=== PATIENT | male | born 1965 | race Caucasian/White ===

== ENCOUNTER 2017-04-05 12:24 | Observation (INO) | payer BC, OTHER ==
[2017-04-05] VITALS (11 sets, daily range): BP systolic 122–155; BP diastolic 66–87; PULSE 52–71; RESP 16–20; TEMP 97.5–98.5; O2SAT 92–98
[~2017-04-05 12:24] MED LIST: ALLO100T PO; ASPI-516 CHEW; ATEN50TA PO; ATOR20TA15 PO; CETI10 PO; COLC1TAB15 PO; FAMO40TA PO; FLUT1SPR5 EACH NARE; HEPA1INJ IM; HYDR25TA5 PO; OMEP20TA93 PO; TETA1INJ4 IM; [UNRECOGNIZED DRUG - CODE] IM
[2017-04-05] MEDS ORDERED: IOHEXOL 350 MG/ML 10 ML VIAL (for RAD DIAG) IVCONTRAST ONE (12:25)
[2017-04-05] MEDS ORDERED: SODIUM CHLORIDE 0.9% FLUSH 10 ML FLUSH IVF PRN (12:45)
--- NOTE | 2017-04-05 13:04 | PD ---
HPI Chief Complaint: Cardiac Complaint Time Seen by Provider: 12:41 Travel History International Travel<30 days: No Contact w/Intl Traveler<30days: No Traveled to known affect area: No History of Present Illness HPI Patient is a 51-year-old male presenting to emergency from for evaluation of chest pain. Patient states he woke up with it this morning approximately 7:30. Patient states it radiates across his anterior chest wall to his back across the shoulder blades. Patient also reports that his blood pressure and pulse rate was low this morning when he checked it. Patient states that he checks it on a daily basis, he has a history of hypertension and is currently on atenolol. He reports compliance with his medications. Patient reports feeling clammy with the pain but denies any shortness of breath, dizziness, headache, nausea, radiation to the arm or jaw. Patient reports a family history of abdominal aortic aneurysms in his father and grandfather. Patient does not use tobacco products. Patient states that he has been burping a lot last night and this morning. PFSH Past Medical History Hx Anticoagulant Therapy: Yes (ASA) High Cholesterol: Yes Hypertension: Yes Past Surgical History Cholecystectomy: Yes Family History Narrative Family History MA history of abdominal aortic aneurysms and father and grandfather Social History Alcohol Use: No Tobacco Use: No Substance Use: No Allergies-Medications (Allergen,Severity, Reaction): Coded Allergies: No Known Allergies (Unverified Adverse Reaction, Unknown, 04/05/17) Reported Meds & Prescriptions Reported Meds & Active Scripts Active Atenolol 50 Mg Tab 50 Mg PO DAILY Famotidine 40 Mg Tab 40 Mg PO HS Flonase Nasal [place] (Fluticasone Nasal [place]) 50 Mcg/Act [place] 100 Mcg EACH NARE BID Allopurinol 100 Mg Tab 300 Mg PO DAILY Hydrochlorothiazide 25 Mg Tab 25 Mg PO DAILY Atorvastatin (Atorvastatin Calcium) 20 Mg Tab 20 Mg PO HS Omeprazole 20 Mg Tab 20 Mg PO DAILY Reported Aspirin 81 Mg Chew 81 Mg CHEW DAILY Cetirizine (Cetirizine HCl) 10 Mg Tab 10 Mg PO DAILY Review of Systems Except as stated in HPI: all other systems reviewed are Neg Eyes: No: Blurred Vision HENT: No: Headaches, Lightheadedness Cardiovascular: Positive: Chest Pain or Discomfort, Diaphoresis, No: Palpitations, Tachycardia, Syncope, Edema Respiratory: No: Shortness of Breath Gastrointestinal: No: Nausea, Vomiting, Abdominal Pain Genitourinary: No: Frequency, Dysuria Musculoskeletal: No: Myalgias Neurologic: No: Weakness, Dizziness, Syncope, Focal Abnormalities Physical Exam Narrative GENERAL: Well-developed, well-nourished, alert male. Resting comfortably in no acute distress. SKIN: Warm and dry. HEAD: Atraumatic. Normocephalic. EYES: Pupils equal and round. No scleral icterus. No injection or drainage. ENT: No nasal bleeding or discharge. Mucous membranes pink and moist. NECK: Trachea midline. No JVD. CARDIOVASCULAR: Bradycardic, no murmur noted. RESPIRATORY: No accessory muscle use. Clear to auscultation. Breath sounds equal bilaterally. GASTROINTESTINAL: Abdomen soft, non-tender, nondistended. Hepatic and splenic margins not palpable. No tenderness to palpation on anterior chest wall or across back. MUSCULOSKELETAL: Extremities without clubbing, cyanosis, or edema. No obvious deformities. NEUROLOGICAL: Awake and alert. No obvious cranial nerve deficits. Motor grossly within normal limits. Five out of 5 muscle strength in the arms and legs. Normal speech. PSYCHIATRIC: Appropriate mood and affect; insight and judgment normal. Data Data Last Documented VS Vital Signs Date Time Temp Pulse Resp B/P (MAP) Pulse Ox O2 Delivery O2 Flow Rate FiO2 04/05/17 13:26 52 16 152/73 (99) 97 Room Air 04/05/17 12:26 97.5 Orders Orders Electrocardiogram (04/05/17 12:40) Ckmb (Isoenzyme) Profile (04/05/17 12:40) Complete Blood Count With Diff (04/05/17 12:40) Comprehensive Metabolic Panel (04/05/17 12:40) Magnesium (Mg) (04/05/17 12:40) Prothrombin Time / Inr (Pt) (04/05/17 12:40) Act Partial Throm Time (Ptt) (04/05/17 12:40) Troponin I (04/05/17 12:40) Lipase (04/05/17 12:40) Chest, Single Ap (04/05/17 12:40) Ecg Monitoring (04/05/17 12:40) Bilateral Bp Monitoring (04/05/17 12:40) Iv Access Insert/Monitor (04/05/17 12:40) Oximetry (04/05/17 12:40) Oxygen Administration (04/05/17 12:40) Sodium Chloride 0.9% Flush (Ns Flush) (04/05/17 12:45) Ct Pulmonary Angiogram (04/05/17 ) CKMB (04/05/17 13:00) CKMB% (04/05/17 13:00) Iohexol 350 Inj (Omnipaque 350 Inj) (04/05/17 12:25) Aspirin Chew (Aspirin Chew) (04/05/17 14:15) Admit Order (Ed Use Only) (04/05/17 14:28) Morphine Inj (Morphine Inj) (04/05/17 14:30) Ondansetron Inj (Zofran Inj) (04/05/17 14:30) Labs Laboratory Tests Test 04/05/17 13:00 White Blood Count 11.6 TH/MM3 Red Blood Count 4.96 MIL/MM3 Hemoglobin 15.7 GM/DL Hematocrit 45.5 % Mean Corpuscular Volume 91.7 FL Mean Corpuscular Hemoglobin 31.7 PG Mean Corpuscular Hemoglobin Concent 34.6 % Red Cell Distribution Width 13.1 % Platelet Count 221 TH/MM3 Mean Platelet Volume 8.5 FL Neutrophils (%) (Auto) 82.1 % Lymphocytes (%) (Auto) 14.0 % Monocytes (%) (Auto) 3.4 % Eosinophils (%) (Auto) 0.1 % Basophils (%) (Auto) 0.4 % Neutrophils # (Auto) 9.5 TH/MM3 Lymphocytes # (Auto) 1.6 TH/MM3 Monocytes # (Auto) 0.4 TH/MM3 Eosinophils # (Auto) 0.0 TH/MM3 Basophils # (Auto) 0.0 TH/MM3 CBC Comment DIFF FINAL Differential Comment Prothrombin Time 11.1 SEC Prothromb Time International Ratio 1.1 RATIO Activated Partial Thromboplast Time 26.4 SEC Blood Urea Nitrogen 12 MG/DL Creatinine 1.02 MG/DL Random Glucose 148 MG/DL Total Protein 7.7 GM/DL Albumin 4.0 GM/DL Calcium Level 9.1 MG/DL Magnesium Level 1.8 MG/DL Alkaline Phosphatase 99 U/L Aspartate Amino Transf (AST/SGOT) 68 U/L Alanine Aminotransferase (ALT/SGPT) 72 U/L Total Bilirubin 0.8 MG/DL Sodium Level 136 MEQ/L Potassium Level 4.6 MEQ/L Chloride Level 102 MEQ/L Carbon Dioxide Level 26.1 MEQ/L Anion Gap 8 MEQ/L Estimat Glomerular Filtration Rate 77 ML/MIN Total Creatine Kinase 262 U/L Creatine Kinase MB 2.0 NG/ML Troponin I LESS THAN 0.02 NG/ML Lipase 86 U/L MDM Medical Decision Making Medical Screen Exam Complete: Yes Emergency Medical Condition: Yes Interpretation(s) Laboratory Tests Test 04/05/17 13:00 White Blood Count 11.6 TH/MM3 Red Blood Count 4.96 MIL/MM3 Hemoglobin 15.7 GM/DL Hematocrit 45.5 % Mean Corpuscular Volume 91.7 FL Mean Corpuscular Hemoglobin 31.7 PG Mean Corpuscular Hemoglobin Concent 34.6 % Red Cell Distribution Width 13.1 % Platelet Count 221 TH/MM3 Mean Platelet Volume 8.5 FL Neutrophils (%) (Auto) 82.1 % Lymphocytes (%) (Auto) 14.0 % Monocytes (%) (Auto) 3.4 % Eosinophils (%) (Auto) 0.1 % Basophils (%) (Auto) 0.4 % Neutrophils # (Auto) 9.5 TH/MM3 Lymphocytes # (Auto) 1.6 TH/MM3 Monocytes # (Auto) 0.4 TH/MM3 Eosinophils # (Auto) 0.0 TH/MM3 Basophils # (Auto) 0.0 TH/MM3 CBC Comment DIFF FINAL Differential Comment Prothrombin Time 11.1 SEC Prothromb Time International Ratio 1.1 RATIO Activated Partial Thromboplast Time 26.4 SEC Blood Urea Nitrogen 12 MG/DL Creatinine 1.02 MG/DL Random Glucose 148 MG/DL Total Protein 7.7 GM/DL Albumin 4.0 GM/DL Calcium Level 9.1 MG/DL Magnesium Level 1.8 MG/DL Alkaline Phosphatase 99 U/L Aspartate Amino Transf (AST/SGOT) 68 U/L Alanine Aminotransferase (ALT/SGPT) 72 U/L Total Bilirubin 0.8 MG/DL Sodium Level 136 MEQ/L Potassium Level 4.6 MEQ/L Chloride Level 102 MEQ/L Carbon Dioxide Level 26.1 MEQ/L Anion Gap 8 MEQ/L Estimat Glomerular Filtration Rate 77 ML/MIN Total Creatine Kinase 262 U/L Creatine Kinase MB 2.0 NG/ML Troponin I LESS THAN 0.02 NG/ML Lipase 86 U/L Last Impressions Chest X-Ray 04/05/17 1240 Signed Impressions: Service Date/Time: Wednesday, April 05, 2017 13:02 - CONCLUSION: Normal examination. Luis F Sim MD CT Angiography 04/05/17 0000 Signed Impressions: Service Date/Time: Wednesday, April 05, 2017 13:46 - CONCLUSION: 1. No pulmonary emboli. 2. Prior granulomatous disease. Zain Lynn Jr., MD Vital Signs Date Time Temp Pulse Resp B/P (MAP) Pulse Ox O2 Delivery O2 Flow Rate FiO2 04/05/17 12:26 97.5 54 16 155/87 (109) 97 Room Air Differential Diagnosis ACS versus NSTEMI versus AAA versus GERD versus other Narrative Course Patient is a 51-year-old male that presented to emergency department evaluation of chest pain. Patient is mildly bradycardic on arrival, his vital signs are otherwise stable and he is asymptomatic. IV access established, patient placed on lunchroom monitor and continuous pulse oximetry. Initial EKG shows sinus bradycardia, this was reviewed by my attending physician. CBC with no acute findings Chemistry no acute findings, cardiac enzymes are negative 1 set, lipase is 86 Chest x-ray shows no acute disease CT pulmonary angiogram was ordered due to patient's family history of aortic aneurysm. CT is negative for acute abnormality. At this time patient will be admitted to the chest pain center for further trending of his enzymes and for possible stress test. This was discussed with patient and , he is agreeable. He also asked for pain medicine at this time which she initially declined when he arrived. Morphine and Zofran ordered for pain. Chest pain admission order placed. Diagnosis Primary Impression: Chest pain Qualified Codes: R07.9 - Chest pain, unspecified Admitting Information Admitting Physician Requests: Observation Condition: Stable Ana Laura Gerardi Ann [employer] Apr 05, 2017 13:04
--- NOTE | 2017-04-05 13:14 | RADRPT ---
EXAM DATE/TIME: 04/05/2017 13:02 [facility] COMPARISON: No previous studies available for comparison. INDICATIONS : Chest pain started today. MEDICAL HISTORY : None. SURGICAL HISTORY : Cholecystectomy. ENCOUNTER: Initial ACUITY: 1 day PAIN SCORE: 6/10 LOCATION: Bilateral chest FINDINGS: A single view of the chest demonstrates the lungs to be symmetrically aerated without evidence of mas s, infiltrate or effusion. The cardiomediastinal contours are unremarkable. Osseous structures are intact. CONCLUSION: Normal examination. Luis F Sim MD on April 05, 2017 at 13:12 Board Certified Radiologist. This report was verified electronically.
[2017-04-05 13:18] LABS: AUTOMATED NEUTROPHIL # 9.5 TH/MM3 (1.8-7.7); BASOPHIL % 0.4 % (0.0-2.0); EOSINOPHIL % 0.1 % (0.0-4.0); HEMATOCRIT 45.5 % (39.0-51.0); HEMO FLAGS DIFF FINAL; LYMPHOCYTE # 1.6 TH/MM3 (1.0-4.8); MEAN CELL VOLUME 91.7 FL (80.0-100.0); MEAN CORPUSCULAR HEMOGLOBIN 31.7 PG (27.0-34.0); MEAN CORPUSCULAR HGB CONC 34.6 % (32.0-36.0); MONO % 3.4 % (0.0-8.0); NEUT % 82.1 % (16.0-70.0); PLATELET COUNT 221 TH/MM3 (150-450); RED BLOOD COUNT 4.96 MIL/MM3 (4.50-5.90); RED CELL DISTRIBUTION WIDTH 13.1 % (11.6-17.2); WHITE BLOOD COUNT 11.6 TH/MM3 (4.0-11.0)
[2017-04-05 13:32] LABS: ALT (GPT) 72 U/L (12-78); ANION GAP 8 MEQ/L (5-15); APTT (PATIENT) 26.4 SEC (24.3-30.1); AST (GOT) 68 U/L (15-37); BICARBONATE 26.1 MEQ/L (21.0-32.0); CHLORIDE 102 MEQ/L (98-107); GLOMERULAR FILTRATION RATE 77 ML/MIN (>89); INTERNATIONAL NORMALIZED RATIO 1.1 RATIO; MAGNESIUM 1.8 MG/DL (1.5-2.5); POTASSIUM 4.6 MEQ/L (3.5-5.1); PROTHROMBIN TIME - PATIENT 11.1 SEC (9.8-11.6); SODIUM (NA) 136 MEQ/L (136-145)
[2017-04-05 13:33] LABS: BLOOD UREA NITROGEN 12 MG/DL (7-18)
[2017-04-05 13:37] LABS: ALKALINE PHOSPHATASE 99 U/L (45-117); CREATINE KINASE 262 U/L (39-308); TOTAL BILIRUBIN ADULT 0.8 MG/DL (0.2-1.0)
[2017-04-05] MEDS ORDERED: ASPIRIN 81 MG CHEW TAB CHEW ONE (14:15)
--- NOTE | 2017-04-05 14:16 | RADRPT ---
EXAM DATE/TIME: 04/05/2017 13:46 This report includes an Addendum and supersedes previous reports for this exam. [facility] COMPARISON: No previous studies available for comparison. INDICATIONS : Short of breath with chest pains for one day. IV CONTRAST: 49 cc Omnipaque 350 (iohexol) IV RADIATION DOSE: 20.64 CTDIvol (mGy) MEDICAL HISTORY : Hypertension. SURGICAL HISTORY : Cholecystectomy. ENCOUNTER: Initial ACUITY: 1 day PAIN SCALE: 5/10 LOCATION: Bilateral chest TECHNIQUE: Volumetric scanning of the chest was performed using a pulmonary embolism protocol MIP images were re constructed. Using automated exposure control and adjustment of the mA and/or kV according to patien t size, radiation dose was kept as low as reasonably achievable to obtain optimal diagnostic quality images. DICOM format image data is available electronically for review and comparison. Follow-up recommendations for detected pulmonary nodules are based at a minimum on nodule size and pa tient risk factors according to Fleischner Society Guidelines. FINDINGS: PULMONARY ARTERIES: No filling defects are seen in the pulmonary arteries through the segmental level. LUNGS: There is no consolidation or pneumothorax . No concerning pulmonary nodule is visualized. The calcif ied granulomas noted bilaterally. PLEURAE: There is no pleural thickening or pleural effusion. MEDIASTINUM: There is good visualization of the great vessels of the middle mediastinum. No evidence of mediastin al or hilar adenopathy/mass. MUSCULOSKELETAL: Within normal limits for patient age. MISCELLANEOUS: The visualized upper abdominal organs demonstrate no acute abnormality. CONCLUSION: 1. No pulmonary emboli. 2. Prior granulomatous disease. Zain Lynn Jr., MD on April 05, 2017 at 14:12 Board Certified Radiologist. This report was verified electronically. ADDENDUM: The thoracic aorta is unremarkable. Luis F Sim MD on April 05, 2017 at 15:18 Board Certified Radiologist. This report was verified electronically.
[2017-04-05] MEDS ORDERED: MORPHINE SULFATE 2 MG/ML INJ IV PUSH ONE (14:30)
[2017-04-05] MEDS ORDERED: ONDANSETRON HCL 4 MG/2 ML VIAL IV PUSH ONE (14:30)
--- NOTE | 2017-04-05 15:06 | EKG ---
Date Performed: 04/05/2017 Time Performed: 12:52:19 PTAGE: 51 years EKG: SINUS BRADYCARDIA BORDERLINE ECG NO PREVIOUS TRACING DOCTOR: Juan Brown Interpretating Date/Time 04/05/2017 15:05:22
[2017-04-05] MEDS ORDERED: ACETAMINOPHEN 500 MG CPLT PO PRN (15:15)
[2017-04-05] MEDS ORDERED: ONDANSETRON HCL 4 MG/2 ML VIAL IV PUSH PRN (15:15)
[2017-04-05] MEDS ORDERED: ACETAMINOPHEN/HYDROcodone 325 MG/7.5 MG TAB PO PRN (15:15)
[2017-04-05] MEDS ORDERED: RESP: ALBUTEROL 2.5 MG/IPRATROPIUM 0.5 MG NEB (PRN) INH (15:30)
[2017-04-05] MEDS ORDERED: cloNIDine HCL 0.1 MG TAB PO PRN (15:30)
--- NOTE | 2017-04-05 15:34 | HHI.HP ---
[facility] Primary Care Physician MIRNA Watts Chief Complaint Abdominal and back pain History of Present Illness This is a 51-year-old male with history of hypertension and hyperlipidemia that presents to ED with a complaint of upper abdominal pain and upper back pain between his shoulder blades. States that this discomfort began this morning while he was home sitting on his couch. This concerned him. He checked his vital signs and found that his heart rate was at 37, states his heart rate issues the in the 50s in the morning. He takes atenolol for hypertension. He states had upper abdominal and back pain and my father of an abdominal aneurysm. Denies chest discomfort. The discomfort has been there ever since which is currently about 5 hours. The discomfort has lightened quite a bit. Denies shortness of breath and nausea. He was little diaphoretic. He also felt lightheaded. Cannot recall prior cardiac workup. Patient also has history of GERD. States he's never had an endoscopy. Review of Systems General: Patient denies fevers, chills recent, and recent travel HEENT: Patient denies headache, sore throat, difficulty swallowing. Cardiovascular: Denies chest discomfort as mentioned above. Denies sensation of heart beating rapidly or irregularly. No syncope. Respiratory: Denies shortness of breath or inspirational chest discomfort. Denies coughing wheezing or hemoptysis. GI: Complains of upper abdominal pain. Complains of upper back pain. Patient denies nausea, vomiting, diarrhea, and bloody stools. Musculoskeletal: Patient denies joint pain or edema. Denies calf pain or edema. Neurovascular: Patient denies numbness, tingling, weakness in extremities. Denies headache. Endocrine: Denies polyuria and polydipsia. Hematologic: Denies easy bruising. Skin: Denies rash or itching. Past Family Social History Allergies: Coded Allergies: No Known Allergies (Unverified Adverse Reaction, Unknown, 04/05/17) Past Medical History Hypertension, hyperlipidemia, GERD, seasonal allergies, and gout. Denies diabetes and known CAD. Past Surgical History Cholecystectomy. Reported Medications Reported Meds & Active Scripts Active Atenolol 50 Mg Tab 50 Mg PO DAILY Famotidine 40 Mg Tab 40 Mg PO HS Flonase Nasal [place] (Fluticasone Nasal [place]) 50 Mcg/Act [place] 100 Mcg EACH NARE BID Allopurinol 100 Mg Tab 300 Mg PO DAILY Hydrochlorothiazide 25 Mg Tab 25 Mg PO DAILY Atorvastatin (Atorvastatin Calcium) 20 Mg Tab 20 Mg PO HS Omeprazole 20 Mg Tab 20 Mg PO DAILY Reported Aspirin 81 Mg Chew 81 Mg CHEW DAILY Cetirizine (Cetirizine HCl) 10 Mg Tab 10 Mg PO DAILY Active Ordered Medications Current Medications Medications (Trade) Dose Ordered Sig/Stacey Route Start Time Stop Time Status Last Admin (NS Flush) 2 ml UNSCH PRN IVF 04/05/17 12:45 (Tylenol) 500 mg Q4H PRN PO 04/05/17 15:15 ([place] 7.5-325 Mg) 1 tab Q4H PRN PO 04/05/17 15:15 (Zofran Inj) 4 mg Q6H PRN IV PUSH 04/05/17 15:15 (Tenormin) 50 mg DAILY PO 04/06/17 09:00 UNV (Lipitor) 20 mg HS PO 04/05/17 21:00 UNV (ZyrTEC) 10 mg DAILY PO 04/06/17 09:00 UNV (Hydrodiuril) 25 mg DAILY PO 04/06/17 09:00 UNV Non-Formulary Medication 100 mcg BID EACH NARE 04/05/17 21:00 UNV (Duoneb Neb) 1 ampule Q4HR NEB PRN INH 04/05/17 15:30 UNV (Catapres) 0.1 mg Q4H PRN PO 04/05/17 15:30 UNV Family History States he was adopted but knows that his father in his 80s of an abdominal aortic aneurysm. Social History Lifetime nonsmoker. Denies illicit drugs. Has occasional alcohol. Physical Exam Vital Signs Vital Signs Date Time Temp Pulse Resp B/P (MAP) Pulse Ox O2 Delivery O2 Flow Rate FiO2 04/05/17 14:45 56 16 122/66 (84) 96 Room Air 04/05/17 13:26 52 16 152/73 (99) 97 Room Air 04/05/17 13:05 20 94 Room Air 04/05/17 13:03 134/82 (99) 152/73 (99) 04/05/17 12:26 97.5 54 16 155/87 (109) 97 Room Air Physical Exam GENERAL: This is a well-nourished, well-developed patient, in no apparent distress. Patient speaks in clear complete sentences. Patient is pleasant. HEENT: Head is atraumatic and normocephalic. Neck is supple without lymphadenopathy and trachea is midline. No JVD or carotid bruits. CARDIOVASCULAR: Regular rate and rhythm without murmurs, gallops, or rubs. RESPIRATORY: Clear to auscultation. Breath sounds equal bilaterally. No wheezes , rales, or rhonchi. Chest wall is nontender. No use of accessory muscles. GASTROINTESTINAL: There is a little bit of epigastric tenderness. Abdomen is nondistended. Abdomen is soft. No obvious pulsatile mass or bruit. No CVA tenderness. Strong femoral pulses bilaterally. Normal bowel sounds in all quadrants. MUSCULOSKELETAL: Patient is moving upper and lower extremities freely. No calf tenderness or edema, no Homans sign. Strong pulses in upper and lower extremities. NEUROLOGICAL: Patient is alert and oriented. Cranial nerves 2-12 are grossly intact. No focal deficits and speech is clear. SKIN: No rash and turgor is normal. Laboratory Laboratory Tests Test 04/05/17 13:00 White Blood Count 11.6 Red Blood Count 4.96 Hemoglobin 15.7 Hematocrit 45.5 Mean Corpuscular Volume 91.7 Mean Corpuscular Hemoglobin 31.7 Mean Corpuscular Hemoglobin Concent 34.6 Red Cell Distribution Width 13.1 Platelet Count 221 Mean Platelet Volume 8.5 Neutrophils (%) (Auto) 82.1 Lymphocytes (%) (Auto) 14.0 Monocytes (%) (Auto) 3.4 Eosinophils (%) (Auto) 0.1 Basophils (%) (Auto) 0.4 Neutrophils # (Auto) 9.5 Lymphocytes # (Auto) 1.6 Monocytes # (Auto) 0.4 Eosinophils # (Auto) 0.0 Basophils # (Auto) 0.0 CBC Comment DIFF FINAL Differential Comment Prothrombin Time 11.1 Prothromb Time International Ratio 1.1 Activated Partial Thromboplast Time 26.4 Blood Urea Nitrogen 12 Creatinine 1.02 Random Glucose 148 Total Protein 7.7 Albumin 4.0 Calcium Level 9.1 Magnesium Level 1.8 Alkaline Phosphatase 99 Aspartate Amino Transf (AST/SGOT) 68 Alanine Aminotransferase (ALT/SGPT) 72 Total Bilirubin 0.8 Sodium Level 136 Potassium Level 4.6 Chloride Level 102 Carbon Dioxide Level 26.1 Anion Gap 8 Estimat Glomerular Filtration Rate 77 Total Creatine Kinase 262 Creatine Kinase MB 2.0 Troponin I LESS THAN 0.02 Lipase 86 Result Diagram: 04/05/17 1300 04/05/17 1300 Imaging Last 48 hours Impressions Chest X-Ray 04/05/17 1240 Signed Impressions: Service Date/Time: Wednesday, April 05, 2017 13:02 - CONCLUSION: Normal examination. Luis F Sim MD CT Angiography 04/05/17 0000 Signed Impressions: Service Date/Time: Wednesday, April 05, 2017 13:46 - CONCLUSION: 1. No pulmonary emboli. 2. Prior granulomatous disease. Zain Lynn Jr., MD ADDENDUM: The thoracic aorta is unremarkable. Luis F Sim MD Course Initial EKG is sinus bradycardia with a rate of 54. No significant ST segment depressions or elevations. Caprini VTE Risk Assessment Caprini VTE Risk Assessment: No/Low Risk (score <= 1) Caprini Risk Assessment Model Point Value = 1 Point Value = 2 Point Value = 3 Point Value = 5 Age 41-60 Minor surgery BMI > 25 kg/m2 Swollen legs Varicose veins or History of unexplained or recurrent spontaneous Oral contraceptives or hormone replacement Sepsis (< 1 month) Serious lung disease, including pneumonia (< 1 month) Abnormal pulmonary function Acute myocardial infarction Congestive heart failure (< 1 month) History of inflammatory bowel disease Medical patient at bed rest Age 61-74 Arthroscopic surgery Major open surgery (> 45 min) Laparoscopic surgery (> 45 min) Malignancy Confined to bed (> 72 hours) Immobilizing plaster cast Central venous access Age >= 75 History of VTE Family history of VTE Factor V Leiden Prothrombin [id number] Lupus anticoagulant Anticardiolipin antibodies Elevated serum homocysteine Heparin-induced thrombocytopenia Other congenital or acquired thrombophilia Stroke (< 1 month) Elective arthroplasty Hip, pelvis, or leg fracture Acute spinal cord injury (< 1 month) Prophylaxis Regimen Total Risk Factor Score Risk Level Prophylaxis Regimen 0-1 Low Early ambulation 2 Moderate Order ONE of the following: *Sequential Compression Device (SCD) *Heparin 5000 units SQ BID 3-4 Higher Order ONE of the following medications: *Heparin 5000 units SQ TID *Enoxaparin/Lovenox 40 mg SQ daily (WT < 150 kg, CrCl > 30 mL/min) *Enoxaparin/Lovenox 30 mg SQ daily (WT < 150 kg, CrCl > 10-29 mL/min) *Enoxaparin/Lovenox 30 mg SQ BID (WT < 150 kg, CrCl > 30 mL/min) AND/OR *Sequential Compression Device (SCD) 5 or more Highest Order ONE of the following medications: *Heparin 5000 units SQ TID (Preferred with Epidurals) *Enoxaparin/Lovenox 40 mg SQ daily (WT < 150 kg, CrCl > 30 mL/min) *Enoxaparin/Lovenox 30 mg SQ daily (WT < 150 kg, CrCl > 10-29 mL/min) *Enoxaparin/Lovenox 30 mg SQ BID (WT < 150 kg, CrCl > 30 mL/min) AND *Sequential Compression Device (SCD) Assessment and Plan Assessment and Plan * Abdominal pain: Patient denies having chest discomfort. Complained of upper abdominal pain in upper back pain. Patient was admitted to the chest pain center and will be evaluated by Dr. Barnes cardiology in the chest pain center. Patient had a CTA to rule out pulmonary embolus which was able to rule out pulmonary embolism. I spoke with the radiologist and he is going to read the films and make an addendum discussing thoracic aorta. Recommended ultrasound of the abdominal aorta to look for aneurysm. This has been ordered. If aneurysm was ruled out, patient with then proceed with stress testing in the morning if he rules out with cardiac enzymes. States he could walk on the treadmill. Subsequently if his CT and abdominal aorta are negative for aneurysm he will proceed with a Carroll protocol ETT and be discharged if that is nonischemic. He has history of GERD. States he's never had endoscopy. He has been advised to follow-up with roller cleaner for endoscopy. He should follow-up with PCP and return to ED for interval issues. * Hypertension: Continue current medication. * Hyperlipidemia: Continue current medication. * GERD: Patient will be on Protonix while in the chest pain center. He can resume his medication discharge. Patient is stable at this time. He is agreeable to this plan. Kg Arias Apr 05, 2017 15:34
--- NOTE | 2017-04-05 16:25 | RADRPT ---
EXAM DATE/TIME: 04/05/2017 15:42 [facility] COMPARISON: No previous studies available for comparison. INDICATIONS : Aortic aneurysm. MEDICAL HISTORY : Hypertension. Gastroesophageal reflux disease. Hypertension. SURGICAL HISTORY : Cholecystectomy. ENCOUNTER: Initial ACUITY: 1 day PAIN SCORE: 6/10 LOCATION: Abdomen. MEASUREMENTS: (AP x TRANSVERSE) PROXIMAL: 2.1 x 2.5 cm MID: 2.0 x 2.2 cm DISTAL: 1.9 x 2.2 cm RIGHT ILIAC: 1.2 x 1.6 cm LEFT ILIAC: 1.0 x 1.5 cm FINDINGS: AORTA: No significant atherosclerotic disease. Doppler evaluation within normal limits. IVC: Within normal limits. CONCLUSION: 1. Abdominal aorta is normal in caliber without evidence for aneurysm. Anthony Marie MD on April 05, 2017 at 16:22 Board Certified Radiologist. This report was verified electronically.
[2017-04-05 16:31] LABS: CREATINE KINASE 157 U/L (39-308)
[2017-04-05 16:43] LABS: CKMB 1.7 NG/ML (0.5-3.6)
[2017-04-05 19:26] LABS: CREATINE KINASE 139 U/L (39-308)
[2017-04-05 19:38] LABS: CKMB 1.7 NG/ML (0.5-3.6)
--- NOTE | 2017-04-05 20:52 | EKG ---
Date Performed: 04/05/2017 Time Performed: 16:13:17 PTAGE: 51 years EKG: SINUS BRADYCARDIA WITH SINUS ARRHYTHMIA BORDERLINE ECG No significant change from prior johny ctrocardiogram. PREVIOUS TRACING : 04/05/2017 12.52 DOCTOR: Juan Brown Interpretating Date/Time 04/05/2017 20:51:10
[2017-04-05] MEDS ORDERED: FLUTICASONE PROPIONATE 50 MCG/ACT 16 GM NASAL SPRAY EACH NARE SCH (21:00)
[2017-04-05] MEDS ORDERED: ATORVASTATIN 20 MG TAB PO SCH (21:00)
--- NOTE | 2017-04-05 21:36 | EKG ---
Date Performed: 04/05/2017 Time Performed: 19:08:13 PTAGE: 51 years EKG: Sinus rhythm WITH SINUS ARRHYTHMIA NORMAL ECG No significant change from prior electrocardiogram. PREVIOUS TRACING : 04/05/2017 16.13 DOCTOR: Juan Brown Interpretating Date/Time 04/05/2017 21:34:55
[2017-04-06 00:13] VITALS: PULSE 75
[2017-04-06 04:08] VITALS: BP 142/81; PULSE 65; RESP 17; TEMP 98.7; O2SAT 98
[2017-04-06 04:12] VITALS: PULSE 65
[2017-04-06 07:28] VITALS: BP 145/87; PULSE 60; RESP 18; TEMP 98.1; O2SAT 96
[2017-04-06] MEDS: ATENOLOL 50 MG TAB PO SCH ×2 (08:55→16:17)
[2017-04-06] MEDS ORDERED: HYDROCHLOROTHIAZIDE 25 MG TAB PO SCH (09:00)
[2017-04-06] MEDS ORDERED: ASPIRIN 325 MG TAB PO SCH (09:00)
[2017-04-06] MEDS ORDERED: CETIRIZINE HCL 10 MG TAB PO SCH (09:00)
[2017-04-06 11:26] VITALS: BP 125/74; PULSE 91; RESP 18; TEMP 97.5; O2SAT 93
[2017-04-06] MEDS ORDERED: REGADENOSON INJ 0.4 MG/5 ML SYR ONE (14:02)
--- NOTE | 2017-04-06 16:00 | RADRPT ---
EXAM DATE/TIME: 04/06/2017 13:40 [facility] COMPARISON: No previous studies available for comparison. INDICATIONS : Chest pain. Angina. DOSE: 35.0 mCi Tc99m Myoview at stress. 11.0 mCi Tc99m Myoview at rest. 0.4 mg Lexiscan STRESS SYMPTOMS: Dyspnea. EJECTION FRACTION: 52% MEDICAL HISTORY : Hypertension. Hypercholesterolemia. SURGICAL HISTORY : Cholecystectomy. ENCOUNTER: Initial ACUITY: 1 day PAIN SCALE: 3/10 LOCATION: Bilateral chest TECHNIQUE: The patient underwent pharmacologic stress with infusion of prescribed dose. Continuous ECG tracing was monitored during stress. Gated SPECT imaging was performed after stress and conventional SPECT i maging was performed at rest. The examination was performed on a SPECT/CT scanner, both attenuation and non-corrected datasets were reviewed. FINDINGS: DISTRIBUTION: The maximum perfused segment at stress is in the inferior/inferolateral wall. PERFUSION STUDY: The pattern of perfusion at stress shows fixed diminished perfusion to the mid and low anteroseptal w all extending into the apex. GATED STUDY: Hypokinesis of the septal wall. Wall motion is otherwise intact. CONCLUSION: 1. There is diminished perfusion to the mid and lower anteroseptal edwards extending into the apex poss ibly representing an old area of infarction. 2. No reversibility to suggest ischemia. 3. Septal hypokinesis with preserved ejection fraction of 52%. RISK CATEGORY: Low (<1% Annual Mortality Rate) Sonny Garza MD on April 06, 2017 at 15:43 Board Certified Radiologist. This report was verified electronically.
[2017-04-06 16:15] VITALS: BP 130/79; PULSE 100; RESP 14; O2SAT 96
--- NOTE | 2017-04-06 16:20 | HHI.DCPOC ---
Discharge Care Plan Diagnosis: (1) Atypical chest pain (2) Family history of abdominal aortic aneurysm (AAA) Goals to Promote Your Health * To prevent worsening of your condition and complications * To maintain your health at the optimal level Directions to Meet Your Goals Take your medications as prescribed Follow your dietary instruction Follow activity as directed Keep your appointments as scheduled Take your immunizations and boosters as scheduled If your symptoms worsen call your PCP, if no PCP go to Urgent Care Center or Emergency Room Smoking is Dangerous to Your Health. Avoid second hand smoke Call the 24-hour hour crisis hotline for domestic abuse at Rita Moore Apr 06, 2017 16:20
--- NOTE | 2017-04-07 12:59 | TR ---
Date Performed: 04/06/2017 Time Performed: 14:05:47 DOCTOR: Sunil Gonzalez DRUG LIST: CLINICAL HISTORY: CHEST PAIN REASON FOR TEST: CHEST PAIN REASON FOR ENDING: OBSERVATION: CONCLUSION: Lexiscan stress test was performed under standard four minute protocol. Radionuclid e was injected one minute prior to ending the test. No electrocardiographic abormalities were present to suggest ischemia. Nuclear imaging and interpretation are pending. COMMENTS:
--- NOTE | 2017-04-07 13:12 | TR ---
Date Performed: 04/06/2017 Time Performed: 10:40:41 DOCTOR: Sunil Gonzalez DRUG LIST: CLINICAL HISTORY: REASON FOR TEST: REASON FOR ENDING: OBSERVATION: CONCLUSION: Carroll protocol attempted. Stopped sec to leg fatigue. Maximum WB=391 % Target HR Ach ieved=77.0 Maximum KG=215/68 Total Exercise Time=9:35. No repord chest discomfort. No ectopy. Normal bp response. Great exercise tolerance. Recovery quick and unremarkable. Suboptimal target heart rate. COMMENTS: Conclusion: Normal treadmill exercise. No evidence of ischemia. test is submaximal.
== END 2017-04-06 18:03 | disposition home or self-care (01) ==
LOC: NEPE 12:24 → NEDH 14:30 → NEPFCDU 16:51
PROVIDERS: ADMIT Internal Medicine Interventional Cardiology; ATTEND Internal Medicine Interventional Cardiology
DX: R10.10 Upper abdominal pain, unspecified (principal); R07.89 Other chest pain; R06.02 Shortness of breath; R42 Dizziness and giddiness; R61 Generalized hyperhidrosis; M54.9 Dorsalgia, unspecified; R00.1 Bradycardia, unspecified; I49.9 Cardiac arrhythmia, unspecified; I20.9 Angina pectoris, unspecified; I10 Essential (primary) hypertension; E78.00 Pure hypercholesterolemia, unspecified; K21.9 Gastro-esophageal reflux disease without esophagitis; J30.2 Other seasonal allergic rhinitis; Z79.899 Other long term (current) drug therapy; Z79.82 Long term (current) use of aspirin
CPT/HCPCS: 71010; 71275; 76775; 78452; 80053; 82550; 82552; 83690; 83735; 84484; 85025; 85610; 85730; 93005; 93017; 96374; 96375; 99285; A9502; G0378; J2270; J2405; J2785; Q9967

== ENCOUNTER 2017-04-24 23:33 | Inpatient (IN) | payer BC ==
[~2017-04-24] VITALS: Ht 172.7 cm; Wt 75.0 kg
[~2017-04-24 23:33] MED LIST changes: -COLC1TAB15 PO
[2017-04-24 23:34] VITALS: BP 165/93; PULSE 53; RESP 16; TEMP 97.8; O2SAT 97
[2017-04-25] VITALS (8 sets, daily range): BP systolic 107–167; BP diastolic 62–92; PULSE 49–83; RESP 16–20; TEMP 97.9–99.8; O2SAT 94–99
[2017-04-25] MEDS ORDERED: SODIUM CHLOR 0.9% 1000 ML INJ 1,000 ML IV SCH (00:23)
--- NOTE | 2017-04-25 00:29 | PD ---
HPI Chief Complaint: Abdominal Pain Time Seen by Provider: 00:23 Travel History International Travel<30 days: No Contact w/Intl Traveler<30days: No Traveled to known affect area: No History of Present Illness HPI Patient states pain radiates into his back. Patient denies chest pain. Patient was recently hospitalized approximate 2 weeks ago for complaint of chest pain with slow heart rate at which time he had a nuclear stress test that was identified for low probability for cardiac risk times one year CT bony angiogram was negative for PE and thoracic aorta was identified to be normal caliber an ultrasound of the abdominal aorta was found also to be consistent was normal caliber no acute process. Patient has done well since hospitalization and returns now because of epigastric pain. Patient states pain does radiate into his back. Patient states pain was 9 and half over 10 is currently 8/10 intensity. Patient has had nausea and vomiting times one without hematemesis coffee-ground emesis or bilious emesis. Patient is status post cholecystectomy. Patient does have history of dyslipidemia and hypertension. Patient denies history of diabetes or tobaccoism. Patient has family history of aortic disease that he is otherwise unaware family history as he is adopted. Patient has had no fever or chills. Patient is unable to identify exacerbating or alleviating factors. PFSH Past Medical History Narrative Medical Hypertension dyslipidemia cholecystectomy no tobacco use nursing notes reviewed Hx Anticoagulant Therapy: Yes (ASA) Cardiovascular Problems: Yes (HTN) High Cholesterol: Yes Diminished Hearing: No Gout: Yes Hypertension: Yes Immunizations Current: Yes Tetanus Vaccination: Unknown Influenza Vaccination: No Past Surgical History Cholecystectomy: Yes Social History Alcohol Use: No Tobacco Use: No Substance Use: No Allergies-Medications (Allergen,Severity, Reaction): Coded Allergies: No Known Allergies (Unverified Adverse Reaction, Unknown, 04/24/17) Reported Meds & Prescriptions Reported Meds & Active Scripts Active Atenolol 50 Mg Tab 50 Mg PO DAILY Famotidine 40 Mg Tab 40 Mg PO HS Flonase Nasal Alpha (Fluticasone Nasal Alpha) 50 Mcg/Act Alpha 100 Mcg EACH NARE BID Allopurinol 100 Mg Tab 300 Mg PO DAILY Hydrochlorothiazide 25 Mg Tab 25 Mg PO DAILY Atorvastatin (Atorvastatin Calcium) 20 Mg Tab 20 Mg PO HS Omeprazole 20 Mg Tab 20 Mg PO DAILY Reported Aspirin 81 Mg Chew 81 Mg CHEW DAILY Cetirizine (Cetirizine HCl) 10 Mg Tab 10 Mg PO DAILY Review of Systems Except as stated in HPI: all other systems reviewed are Neg Physical Exam Narrative GENERAL: Well-developed well-nourished female in acute distress no respiratory distress SKIN: Warm and dry. HEAD: Normocephalic. EYES: No scleral icterus. No injection or drainage. NECK: Supple, trachea midline. No JVD or lymphadenopathy. CARDIOVASCULAR: Regular rate and rhythm without murmurs, gallops, or rubs. RESPIRATORY: Breath sounds equal bilaterally. No accessory muscle use. GASTROINTESTINAL: Abdomen soft, epigastric and umbilical tenderness to palpation without guarding or rebound, nondistended. MUSCULOSKELETAL: No cyanosis, or edema. BACK: Nontender without obvious deformity. No CVA tenderness. Data Data Last Documented VS Vital Signs Date Time Temp Pulse Resp B/P (MAP) Pulse Ox O2 Delivery O2 Flow Rate FiO2 04/25/17 02:25 72 18 136/89 (105) Room Air 04/25/17 00:46 99 04/24/17 23:34 97.8 Orders Orders Complete Blood Count With Diff (04/25/17:23) Comprehensive Metabolic Panel (04/25/17 00:23) Lipase (04/25/17:23) Lactic Acid (04/25/17:23) Prothrombin Time / Inr (Pt) (04/25/17:23) Act Partial Throm Time (Ptt) (04/25/17:23) Urinalysis - C+S If Indicated (04/25/17:23) Ct Abd/Pel W Iv Contrast(Rout) (04/25/17:23) Iv Access Insert/Monitor (04/25/17:23) Ecg Monitoring (04/25/17:23) Oximetry (04/25/17:23) Ondansetron Inj (Zofran Inj) (04/25/17 00:30) Sodium Chlor 0.9% 1000 Ml Inj (Ns 1000 M (04/25/17:23) Sodium Chloride 0.9% Flush (Ns Flush) (04/25/17 00:30) Electrocardiogram (04/25/17 00:23) Chest, Single Ap (04/25/17 00:23) Morphine Inj (Morphine Inj) (04/25/17 00:30) Iohexol 350 Inj (Omnipaque 350 Inj) (04/25/17 02:03) Admit Order (Ed Use Only) (04/25/17 ) Vital Signs (Adult) Q4H (04/25/17 02:56) Diet Npo (04/25/17 Breakfast) Activity Oob With Assistance (04/25/17 02:56) Notify Dr: Other (04/25/17 02:56) Labs Laboratory Tests Test 04/25/17 00:30 White Blood Count 9.4 TH/MM3 Red Blood Count 5.52 MIL/MM3 Hemoglobin 17.9 GM/DL Hematocrit 50.9 % Mean Corpuscular Volume 92.3 FL Mean Corpuscular Hemoglobin 32.4 PG Mean Corpuscular Hemoglobin Concent 35.1 % Red Cell Distribution Width 13.5 % Platelet Count 275 TH/MM3 Mean Platelet Volume 8.5 FL Neutrophils (%) (Auto) 66.3 % Lymphocytes (%) (Auto) 24.5 % Monocytes (%) (Auto) 7.9 % Eosinophils (%) (Auto) 0.7 % Basophils (%) (Auto) 0.6 % Neutrophils # (Auto) 6.2 TH/MM3 Lymphocytes # (Auto) 2.3 TH/MM3 Monocytes # (Auto) 0.7 TH/MM3 Eosinophils # (Auto) 0.1 TH/MM3 Basophils # (Auto) 0.1 TH/MM3 CBC Comment DIFF FINAL Differential Comment Prothrombin Time 10.5 SEC Prothromb Time International Ratio 1.0 RATIO Activated Partial Thromboplast Time 24.8 SEC Urine Color BROWN Urine Turbidity CLEAR Urine pH 7.0 Urine Specific [place] 1.036 Urine Protein 30 mg/dL Urine Glucose (UA) NEG mg/dL Urine Ketones TRACE mg/dL Urine Occult Blood TRACE Urine Nitrite NEG Urine Bilirubin MOD Urine Urobilinogen 4.0 MG/DL Urine Leukocyte Esterase NEG Urine RBC 8 /hpf Urine WBC 3 /hpf Urine Squamous Epithelial Cells <1 /hpf Urine Mucus FEW /lpf Microscopic Urinalysis Comment CULT NOT INDICATED Blood Urea Nitrogen 13 MG/DL Creatinine 1.22 MG/DL Random Glucose 151 MG/DL Total Protein 8.6 GM/DL Albumin 4.4 GM/DL Calcium Level 9.3 MG/DL Alkaline Phosphatase 199 U/L Aspartate Amino Transf (AST/SGOT) 337 U/L Alanine Aminotransferase (ALT/SGPT) 581 U/L Total Bilirubin 4.8 MG/DL Sodium Level 138 MEQ/L Potassium Level 3.4 MEQ/L Chloride Level 100 MEQ/L Carbon Dioxide Level 29.3 MEQ/L Anion Gap 9 MEQ/L Estimat Glomerular Filtration Rate 63 ML/MIN Lactic Acid Level 2.1 mmol/L Lipase 134 U/L MDM Medical Decision Making Medical Screen Exam Complete: Yes Emergency Medical Condition: Yes Medical Record Reviewed: Yes Interpretation(s) EKG: Sinus bradycardia rate [address] elevation injury pattern or ectopy noted Vital Signs Date Time Temp Pulse Resp B/P (MAP) Pulse Ox O2 Delivery O2 Flow Rate FiO2 04/25/17 02:25 72 18 136/89 (105) Room Air 04/25/17 00:46 99 Room Air 04/25/17 00:09 49 16 167/79 (108) 97 Room Air 04/24/17 23:34 97.8 53 16 165/93 (117) 97 Room Air Last Impressions Chest X-Ray 04/25/1722 Signed Impressions: Service Date/Time: Tuesday, April 25, 2017 00:30 - CONCLUSION: Cardiomegaly. No acute cardiopulmonary disease. Joaquin Giron MD Abdomen/Pelvis CT 04/25/1722 Signed Impressions: Service Date/Time: Tuesday, April 25, 2017 01:57 - CONCLUSION: 1. No evidence of acute abdominal or pelvic process. No masses are identified. 2. Hypodense liver compatible with fatty infiltration or hepatocellular disease. Joaquin Giron MD CBC & BMP Diagram 04/25/17 00:30 Total Protein 8.6 H, Albumin 4.4, Calcium Level 9.3, Alkaline Phosphatase 199 H , Aspartate Amino Transf (AST/SGOT) 337 H, Alanine Aminotransferase (ALT/SGPT) 581 H, Total Bilirubin 4.8 H Differential Diagnosis Abdominal pain, pancreatitis, choledocholithiasis, gastritis, peptic ulcer disease, atypical diverticulitis, ACS, MA, aortic dissection Narrative Course Patient placed on nurse licensed practical with continuous pulse oximetry; IV access obtained specimens collected and sent for resulting EKG performed which shows a sinus bradycardia otherwise without acute abnormality; maintenance IV fluids administered along with morphine sulfate 4 mg IV and Zofran [address] abdomen and pelvis ordered CT abdomen and pelvis reveals fatty liver changes otherwise no acute process; patient identified to have elevation of LFTs with transaminitis and hyperbilirubinemia normal lipase Patient's pain is improved 6/10 in intensity after morphine IV decreased from 10 over 10 in intensity Patient is aware of imaging results and lab values with plan for observation admission Patient's case discussed with [facility] MD Dr Agarwal Physician Communication Physician Communication discussed with [facility] Diagnosis Primary Impression: Intractable abdominal pain Additional Impression: Hepatitis Admitting Information Admitting Physician Requests: Observation Michell Thomas MD Apr 25, 2017 00:29
[2017-04-25] MEDS ORDERED: ONDANSETRON HCL 4 MG/2 ML VIAL IVP ONE (00:30)
[2017-04-25] MEDS ORDERED: SODIUM CHLORIDE 0.9% FLUSH 10 ML FLUSH IV FLUSH PRN ×2 (00:30→03:00)
[2017-04-25] MEDS ORDERED: MORPHINE SULFATE 2 MG/ML INJ IV PUSH ONE (00:30)
--- NOTE | 2017-04-25 00:50 | RADRPT ---
EXAM DATE/TIME: 04/25/2017 00:30 [facility] COMPARISON: CHEST SINGLE AP, April 05, 2017, 13:02. INDICATIONS : Upper abdominal pain with vomiting. MEDICAL HISTORY : Hypercholesterolemia. Hypertension SURGICAL HISTORY : Cholecystectomy. ENCOUNTER: Initial ACUITY: 2 days PAIN SCORE: 8/10 LOCATION: Bilateral chest FINDINGS: The cardiac silhouette is enlarged in transverse diameter. The lungs are free of acute parenchymal op acity. No effusions are identified. Osseous structures are intact. CONCLUSION: Cardiomegaly. No acute cardiopulmonary disease. Joaquin Giron MD on April 25, 2017 at 0:48 Board Certified Radiologist. This report was verified electronically.
[2017-04-25 00:53] LABS: AUTOMATED NEUTROPHIL # 6.2 TH/MM3 (1.8-7.7); BASOPHIL # 0.1 TH/MM3 (0-0.2); BASOPHIL % 0.6 % (0.0-2.0); EOSINOPHIL # 0.1 TH/MM3 (0-0.4); EOSINOPHIL % 0.7 % (0.0-4.0); HEMATOCRIT 50.9 % (39.0-51.0); HEMOGLOBIN 17.9 GM/DL (13.0-17.0); LYMPH % 24.5 % (9.0-44.0); LYMPHOCYTE # 2.3 TH/MM3 (1.0-4.8); MEAN CELL VOLUME 92.3 FL (80.0-100.0); MEAN CORPUSCULAR HEMOGLOBIN 32.4 PG (27.0-34.0); MEAN CORPUSCULAR HGB CONC 35.1 % (32.0-36.0); MEAN PLATELET VOLUME 8.5 FL (7.0-11.0); MONO % 7.9 % (0.0-8.0); MONOCYTE # 0.7 TH/MM3 (0-0.9); NEUT % 66.3 % (16.0-70.0); PLATELET COUNT 275 TH/MM3 (150-450); RED BLOOD COUNT 5.52 MIL/MM3 (4.50-5.90); RED CELL DISTRIBUTION WIDTH 13.5 % (11.6-17.2); WHITE BLOOD COUNT 9.4 TH/MM3 (4.0-11.0)
[2017-04-25 00:57] LABS: BILIRUBIN, URINE MOD (NEG); BLOOD, URINE TRACE (NEG); GLUCOSE,URINE NEG (NEG); KETONE, URINE TRACE mg/dL (NEG); MUCUS URINE FEW /lpf (OCC); NITRITE,URINE NEG (NEG); SQUAMOUS EPITHELIAL CELL URINE <1 /hpf (0-5); URINE LEUKOCYTE ESTERASE NEG (NEG)
[2017-04-25 00:58] LABS: URINE COLOR BROWN (YELLW/STRAW)
[2017-04-25 01:03] LABS: PROTHROMBIN TIME - PATIENT 10.5 SEC (9.8-11.6)
[2017-04-25 01:17] LABS: ALKALINE PHOSPHATASE 199 U/L (45-117); ALT (GPT) 581 U/L (12-78); TOTAL BILIRUBIN ADULT 4.8 MG/DL (0.2-1.0); TOTAL PROTEIN 8.6 GM/DL (6.4-8.2)
[2017-04-25 01:40] LABS: ALBUMIN 4.4 GM/DL (3.4-5.0); AST (GOT) 337 U/L (15-37); BICARBONATE 29.3 MEQ/L (21.0-32.0); BLOOD UREA NITROGEN 13 MG/DL (7-18); CALCIUM 9.3 MG/DL (8.5-10.1); CHLORIDE 100 MEQ/L (98-107); CREATININE 1.22 MG/DL (0.60-1.30); GLOMERULAR FILTRATION RATE 63 ML/MIN (>89); GLUCOSE,RANDOM 151 MG/DL (74-106); LIPASE 134 U/L (73-393); SODIUM (NA) 138 MEQ/L (136-145)
[2017-04-25] MEDS ORDERED: IOHEXOL 350 MG/ML 10 ML VIAL (for RAD DIAG) IVCONTRAST ONE (02:03)
--- NOTE | 2017-04-25 02:17 | RADRPT ---
EXAM DATE/TIME: 04/25/2017 01:57 [facility] COMPARISON: No previous studies available for comparison. INDICATIONS : Epigastric pain. IV CONTRAST: 95 cc Omnipaque 350 (iohexol) IV ORAL CONTRAST: No oral contrast ingested. RADIATION DOSE: 16.00 CTDIvol (mGy) MEDICAL HISTORY : Hypertension. Cardiovascular disease Gastroesophageal reflux disease. SURGICAL HISTORY : Cholecystectomy. ENCOUNTER: Initial ACUITY: 1 day PAIN SCALE: 10/10 LOCATION: Abdomen TECHNIQUE: Volumetric scanning of the abdomen and pelvis was performed. Using automated exposure control and ad justment of the mA and/or kV according to patient size, radiation dose was kept as low as reasonably achievable to obtain optimal diagnostic quality images. DICOM format image data is available electro nically for review and comparison. FINDINGS: There is subsegmental atelectasis in the both bases. Calcified granuloma is present in the left lung . There is decreased density of the liver with respect to the spleen compatible with fatty infiltrati on. The spleen is unremarkable. The gallbladder is absent. The pancreas demonstrates normal contour w ithout evidence of mass or ductal dilatation. The adrenal glands and kidneys appear normal bilaterall y. No hydronephrosis or mass lesions are identified. Examination of the right lower quadrant demonstr ates no abnormality. The appendix is identified and appears normal. Examination of the pelvis demonstrates no evidence of free fluid or pelvic mass. No abnormally enlarg ed inguinal or retroperitoneal lymph nodes are present. The bladder is unremarkable. CONCLUSION: 1. No evidence of acute abdominal or pelvic process. No masses are identified. 2. Hypodense liver compatible with fatty infiltration or hepatocellular disease. Joaquin Giron MD on April 25, 2017 at 2:14 Board Certified Radiologist. This report was verified electronically.
[2017-04-25] MEDS ORDERED: LACTULOSE SYRUP 20 GM/30 ML CUP PO PRN (03:00)
[2017-04-25] MEDS ORDERED: ONDANSETRON HCL 4 MG/2 ML VIAL IVP PRN (03:00)
[2017-04-25] MEDS ORDERED: BISACODYL 10 MG SUPP RECTAL PRN (03:00)
[2017-04-25] MEDS ORDERED: ACETAMINOPHEN 325 MG TAB PO PRN (03:00)
[2017-04-25] MEDS ORDERED: SENNOSIDES 8.6 MG TAB PO PRN (03:00)
[2017-04-25] MEDS ORDERED: FAMOTIDINE 20 MG/2 ML VIAL IV PUSH ONE (03:00)
[2017-04-25] MEDS ORDERED: MORPHINE SULFATE 2 MG/ML INJ IV PUSH PRN (03:00)
[2017-04-25] MEDS ORDERED: MAGNESIUM HYDROXIDE SUSP 30 ML CUP PO PRN (03:00)
[2017-04-25] MEDS: SODIUM CHLOR 0.9% 1000 ML INJ 1,000 ML IV SCH ×3 (03:25→23:38)
--- NOTE | 2017-04-25 03:37 | HHI.HP ---
[facility] Watts Admission Diagnosis intractable pain; hepatitis Diagnoses: (1) Intractable abdominal pain Diagnosis: Principal (2) Elevated LFTs Diagnosis: Principal (3) Lactic acidosis Diagnosis: Principal (4) Hypokalemia Diagnosis: Principal Travel History International Travel<30 Days: No Contact w/Intl Traveler <30 Da: No Traveled to Known Affected Are: No History of Present Illness This is a 51-year-old male with PMH of HTN, Hyperlipidemia and Gout who presented to the ER w/ complaints of epigastric pain. States the pain started last night. Pain is severe, constant, 9/10 and radiates to back. Associated w / nausea/vomiting. No fever, chills or diarrhea. Denies alleviating or exacerbating factors. No h/o similar symptoms. On arrival, BP 165/93, HR 53, O2 sat 97% on RA, Afebrile. CBC essentially unremarkable. K+ 3.4. GFR 63. Lactic Acid 2.1. Total Bili 4.8. LFTs elevated in comparison to previous labs from 04/05/17. AST 337, ALT 581, ALP 199, previously normal. INR 1.0. UA negative for UTI. CT Abd/Pelvis w/ no evidence of acute abdominal or pelvic process, hypodense liver w/ fatty infiltration. CXR w/ no acute findings. S/p multiple doses of Morphine in ER w/ some improvement. Review of Systems Except as stated in HPI: all other systems reviewed are Neg ROS: 14 point review of systems otherwise negative. Past Family Social History Past Medical History PMH: HTN, Hyperlipidemia and Gout Past Surgical History PAST SURGICAL HISTORY: Cholecystectomy Allergies: Coded Allergies: No Known Allergies (Unverified Adverse Reaction, Unknown, 04/24/17) Family History PAST FAMILY HISTORY: Reviewed. No h/o DM or CAD Social History PAST SOCIAL HISTORY: Negative for alcohol, tobacco or drugs. Physical Exam Vital Signs Vital Signs Date Time Temp Pulse Resp B/P (MAP) Pulse Ox O2 Delivery O2 Flow Rate FiO2 04/25/17 02:25 72 18 136/89 (105) Room Air 04/25/17 00:46 99 Room Air 04/25/17 00:09 49 16 167/79 (108) 97 Room Air 04/24/17 23:34 97.8 53 16 165/93 (117) 97 Room Air Physical Exam PE: GENERAL: Pleasant middle-aged male in no acute distress. HEENT: PERRLA, EOMI. No scleral icterus or conjunctival pallor. No lid lag or facial droop. CARDIOVASCULAR: Regular rate and rhythm. No obvious murmurs to auscultation. No chest tenderness to palpation. RESPIRATORY: No obvious rhonchi or wheezing. Clear to auscultation. Breath sounds equal bilaterally. GASTROINTESTINAL: Abdomen soft, epigastric/RUQ tenderness to palpation, nondistended. BS normal. MUSCULOSKELETAL: Extremities without clubbing, cyanosis, or edema. No obvious deformities. NEUROLOGICAL: Awake, alert and oriented x4. No focal neurologic deficits. Moving both upper and lower extremities spontaneously. Laboratory Laboratory Tests Test 04/25/17 00:30 White Blood Count 9.4 Red Blood Count 5.52 Hemoglobin 17.9 Hematocrit 50.9 Mean Corpuscular Volume 92.3 Mean Corpuscular Hemoglobin 32.4 Mean Corpuscular Hemoglobin Concent 35.1 Red Cell Distribution Width 13.5 Platelet Count 275 Mean Platelet Volume 8.5 Neutrophils (%) (Auto) 66.3 Lymphocytes (%) (Auto) 24.5 Monocytes (%) (Auto) 7.9 Eosinophils (%) (Auto) 0.7 Basophils (%) (Auto) 0.6 Neutrophils # (Auto) 6.2 Lymphocytes # (Auto) 2.3 Monocytes # (Auto) 0.7 Eosinophils # (Auto) 0.1 Basophils # (Auto) 0.1 CBC Comment DIFF FINAL Differential Comment Prothrombin Time 10.5 Prothromb Time International Ratio 1.0 Activated Partial Thromboplast Time 24.8 Urine Color BROWN Urine Turbidity CLEAR Urine pH 7.0 Urine Specific [place] 1.036 Urine Protein 30 Urine Glucose (UA) NEG Urine Ketones TRACE Urine Occult Blood TRACE Urine Nitrite NEG Urine Bilirubin MOD Urine Urobilinogen 4.0 Urine Leukocyte Esterase NEG Urine RBC 8 Urine WBC 3 Urine Squamous Epithelial Cells <1 Urine Mucus FEW Microscopic Urinalysis Comment CULT NOT INDICATED Blood Urea Nitrogen 13 Creatinine 1.22 Random Glucose 151 Total Protein 8.6 Albumin 4.4 Calcium Level 9.3 Alkaline Phosphatase 199 Aspartate Amino Transf (AST/SGOT) 337 Alanine Aminotransferase (ALT/SGPT) 581 Total Bilirubin 4.8 Sodium Level 138 Potassium Level 3.4 Chloride Level 100 Carbon Dioxide Level 29.3 Anion Gap 9 Estimat Glomerular Filtration Rate 63 Lactic Acid Level 2.1 Lipase 134 Result Diagram: 04/25/172904/25/1729 Caprini VTE Risk Assessment Caprini VTE Risk Assessment: No/Low Risk (score <= 1) Caprini Risk Assessment Model Point Value = 1 Point Value = 2 Point Value = 3 Point Value = 5 Age 41-60 Minor surgery BMI > 25 kg/m2 Swollen legs Varicose veins or History of unexplained or recurrent spontaneous Oral contraceptives or hormone replacement Sepsis (< 1 month) Serious lung disease, including pneumonia (< 1 month) Abnormal pulmonary function Acute myocardial infarction Congestive heart failure (< 1 month) History of inflammatory bowel disease Medical patient at bed rest Age 61-74 Arthroscopic surgery Major open surgery (> 45 min) Laparoscopic surgery (> 45 min) Malignancy Confined to bed (> 72 hours) Immobilizing plaster cast Central venous access Age >= 75 History of VTE Family history of VTE Factor V Leiden Prothrombin [id number] Lupus anticoagulant Anticardiolipin antibodies Elevated serum homocysteine Heparin-induced thrombocytopenia Other congenital or acquired thrombophilia Stroke (< 1 month) Elective arthroplasty Hip, pelvis, or leg fracture Acute spinal cord injury (< 1 month) Prophylaxis Regimen Total Risk Factor Score Risk Level Prophylaxis Regimen 0-1 Low Early ambulation 2 Moderate Order ONE of the following: *Sequential Compression Device (SCD) *Heparin 5000 units SQ BID 3-4 Higher Order ONE of the following medications: *Heparin 5000 units SQ TID *Enoxaparin/Lovenox 40 mg SQ daily (WT < 150 kg, CrCl > 30 mL/min) *Enoxaparin/Lovenox 30 mg SQ daily (WT < 150 kg, CrCl > 10-29 mL/min) *Enoxaparin/Lovenox 30 mg SQ BID (WT < 150 kg, CrCl > 30 mL/min) AND/OR *Sequential Compression Device (SCD) 5 or more Highest Order ONE of the following medications: *Heparin 5000 units SQ TID (Preferred with Epidurals) *Enoxaparin/Lovenox 40 mg SQ daily (WT < 150 kg, CrCl > 30 mL/min) *Enoxaparin/Lovenox 30 mg SQ daily (WT < 150 kg, CrCl > 10-29 mL/min) *Enoxaparin/Lovenox 30 mg SQ BID (WT < 150 kg, CrCl > 30 mL/min) AND *Sequential Compression Device (SCD) Assessment and Plan Problem List: (1) Intractable abdominal pain ICD Code: R10.9 - Unspecified abdominal pain (2) Elevated LFTs ICD Code: R79.89 - Other specified abnormal findings of blood chemistry (3) Lactic acidosis ICD Code: E87.2 - Acidosis (4) Hypokalemia ICD Code: E87.6 - Hypokalemia Assessment and Plan A/P: 1. Intractable Abd Pain: reports acute onset of epigastric/RUQ pain, s/p Morphine in ER w/ some improvement, however persistent pain complaints. Continue w/ analgesics/antiemetics as needed. Diet as tolerated. 2. Elevated LFTs: Acute. Labs previously normal on 04/05/17, now Total Bili 4.8, AST 337, ALT 581, ALP 199. Unclear etiology. Lipase normal. CT Abd/ Pelvis w/ no acute findings, images reviewed by me. Hepatitis secondary to medications? Will hold Allopurinol. Check Hepatitis Panel, check Tylenol level , Check Lipid Profile, TSH. Consult GI for further evaluation, possible intervention. 3. Lactic Acidosis: Lactate 2.1, likely secondary to dehydration rather than Sepsis. Afebrile, no leukocytosis. IVF for hydration, repeat Lactic Acid. 4. Hypokalemia: K+ 3.4, will recheck and replace as needed. 5. DVT Prophylaxis: SCD/Teds 6. Social work for dc planning as needed. 7. Case discussed at length w/ ER physician, records/labs/imaging reviewed by me. Physician Certification 2 Midnight Certification Type: Admission for Inpatient Services Order for Inpatient Services The services are ordered in accordance with Medicare regulations or non- Medicare payer requirements, as applicable. In the case of services not specified as inpatient-only, they are appropriately provided as inpatient services in accordance with the 2-midnight benchmark. Estimated LOS (days): 2 days is the estimated time the patient will need to remain in the hospital, assuming treatment plan goals are met and no additional complications. Post-Hospital Plan: Not yet determined Jillian Agarwal MD Apr 25, 2017 03:37
[2017-04-25] MEDS ORDERED: HYDROmorphone HCL PF 2 MG/ML VIAL IV PUSH PRN ×2 (03:45→09:00)
[2017-04-25 07:38] LABS: CHOLESTEROL 107 MG/DL (120-200); TRIGLYCERIDES 211 MG/DL (42-150)
[2017-04-25 07:47] LABS: HDL CHOLESTEROL 31.4 MG/DL (40.0-60.0); LDL CHOLESTEROL 33 MG/DL (0-99)
[2017-04-25 07:58] LABS: ACETAMINOPHEN LESS THAN 2.0 MCG/ML (10.0-30.0)
[2017-04-25] MEDS ORDERED: OMEP20TA93 PO (09:11)
[2017-04-25] MEDS: DOCUSATE SODIUM 50 MG/SENNA 8.6 MG TAB PO SCH ×2 (09:24→21:00)
[2017-04-25] MEDS: SODIUM CHLORIDE 0.9% FLUSH 10 ML FLUSH IV FLUSH SCH ×2 (09:24→21:00)
--- NOTE | 2017-04-25 09:41 | RADRPT ---
EXAM DATE/TIME: 04/25/2017 07:51 [facility] COMPARISON: CT ABDOMEN & PELVIS W CONTRAST, April 25, 2017, 1:57. INDICATIONS : Right upper quadrant pain. MEDICAL HISTORY : Hypercholesterolemia. Hypertension. Gastroesophageal reflux disease. Gout. Anticoagulant therapy, Asp irin. SURGICAL HISTORY : Cholecystectomy. ENCOUNTER: Initial ACUITY: 3 days PAIN SCORE: 10/10 LOCATION: Right upper quadrant MEASUREMENTS: LIVER: 16.9 cm length COMMON DUCT: Non-visualized RIGHT KIDNEY: 11.5 x 5.5 x 6.6 cm FINDINGS: LIVER: Markedly echogenic without duct dilatation COMMON DUCT: Poorly visualized GALLBLADDER: Surgically absent PANCREAS: Are visualized RIGHT KIDNEY: No evidence of hydronephrosis, stone, or mass. CONCLUSION: Very limited exam. Gallbladder surgically absent. Johny Serra MD FACR on April 25, 2017 at 9:37 Board Certified Radiologist. This report was verified electronically.
[2017-04-25] MEDS ORDERED: amLODIPine BESYLATE 5 MG TAB PO ONE (10:30)
--- NOTE | 2017-04-25 10:38 | HHI.PR ---
Subjective Remarks Follow up on patient with epigastric pain radiating to back. Patient seen and examined. Patient lying in bed moaning. 10/10 pain. Diaphoretic. Patient denies hx of liver problems. Reports N/V yesterday, no blood in vomitus. Denies any diarrhea or constipation. Denies any black/tarry/bloody stools. Does endorse hematuria without dysuria yesterday. Hx of previous cholecystectomy. Denies EtOH use. Objective Vitals Vital Signs Date Time Temp Pulse Resp B/P (MAP) Pulse Ox O2 Delivery O2 Flow Rate FiO2 04/25/17 05:49 97.9 61 20 139/80 (99) 94 04/25/17 04:02 04/25/17 02:25 72 18 136/89 (105) Room Air 04/25/17 00:46 99 Room Air 04/25/17 00:09 49 16 167/79 (108) 97 Room Air 04/24/17 23:34 97.8 53 16 165/93 (117) 97 Room Air Result Diagram: 04/25/170 04/25/1729 Imaging Last Impressions Chest X-Ray 04/25/1722 Signed Impressions: Service Date/Time: Tuesday, April 25, 2017 00:30 - CONCLUSION: Cardiomegaly. No acute cardiopulmonary disease. Joaquin Giron MD Abdomen/Pelvis CT 04/25/1722 Signed Impressions: Service Date/Time: Tuesday, April 25, 2017 01:57 - CONCLUSION: 1. No evidence of acute abdominal or pelvic process. No masses are identified. 2. Hypodense liver compatible with fatty infiltration or hepatocellular disease. Joaquin Giron MD Objective Remarks GENERAL: Well-nourished, well-developed male patient in obvious pain. Diaphoretic. SKIN: Warm and sweaty. No rash. HEAD: Normocephalic. Atraumatic. EYES: EOMI. No scleral icterus. No injection or drainage. ENT: No nasal bleeding or discharge. Mucous membranes pink and moist. NECK: Supple. Trachea midline. CARDIOVASCULAR: Regular rate and rhythm. S1, S2 noted. No murmur appreciated. RESPIRATORY: Nonlabored. Clear to auscultation. Breath sounds equal bilaterally. GASTROINTESTINAL: Abdomen soft, nondistended. (+)Tenderness to palpation over epigastrium and RUQ. + Hypoactive BS. MUSCULOSKELETAL: No obvious deformities. Extremities without clubbing, cyanosis , or edema. NEUROLOGICAL: Awake and alert. No obvious cranial nerve deficits. Able to move all extremities spontaneously. Normal speech. PSYCHIATRIC: Appropriate mood and affect; insight and judgment normal. Medications and IVs Current Medications Medications (Trade) Dose Ordered Sig/Stacey Route Start Time Stop Time Status Last Admin Sodium Chloride 1,000 ml @ 125 mls/hr Q8H IV 04/25/17 00:23 04/25/17 08:22 04/25/17 00:56 (NS Flush) 2 ml UNSCH PRN IV FLUSH 04/25/17 00:30 Sodium Chloride 1,000 ml @ 100 mls/hr Q10H IV 04/25/17 02:58 04/25/17 03:25 (NS Flush) 2 ml UNSCH PRN IV FLUSH 04/25/17 03:00 (NS Flush) 2 ml BID IV FLUSH 04/25/17 09:00 (Zofran Inj) 4 mg Q6H PRN IVP 04/25/17 03:00 (Tylenol) 650 mg Q6H PRN PO 04/25/17 03:00 (Roxicodone) 5 mg Q4H PRN PO 04/25/17 03:00 (Gwendolyn-Colace) 1 tab BID PO 04/25/17 09:00 (Milk Of Magnesia Liq) 30 ml Q12H PRN PO 04/25/17 03:00 (Senokot) 17.2 mg Q12H PRN PO 04/25/17 03:00 (Dulcolax Supp) 10 mg DAILY PRN RECTAL 04/25/17 03:00 (Lactulose Liq) 30 ml DAILY PRN PO 04/25/17 03:00 (Dilaudid Pf Inj) 1 mg Q4H PRN IV PUSH 04/25/17 03:45 04/25/17 03:48 A/P Problem List: (1) Intractable abdominal pain ICD Code: R10.9 - Unspecified abdominal pain (2) Elevated LFTs ICD Code: R79.89 - Other specified abnormal findings of blood chemistry (3) Lactic acidosis ICD Code: E87.2 - Acidosis (4) Hypokalemia ICD Code: E87.6 - Hypokalemia Assessment and Plan Intractable Abd Pain: reports acute onset of epigastric/RUQ pain CT abd/pelvis - No evidence of acute abdominal or pelvic process. No masses are identified. Hypodense liver compatible with fatty infiltration or hepatocellular disease s/p Morphine in ER w/ some improvement, however persistent pain complaints. Continue w/ analgesics/antiemetics as needed. Diet as tolerated. Transaminitis: Acute. Labs previously normal on 04/05/17, now Total Bili 4.8, AST 337, ALT 581, ALP 199. PT/INR 10.5/1.0. Unclear etiology. Lipase normal. Hepatitis secondary to medications? Will hold Allopurinol. Hepatitis Panel pending. TSH WNL. Tylenol level less than 2.0. Consult GI for further evaluation, possible intervention, appreciate recommendations. Lactic Acidosis: Lactate 2.1 likely secondary to dehydration rather than Sepsis. Afebrile, no leukocytosis. IVF for hydration, repeat Lactic Acid 1.9, resolved. Hypertension: fair control suspect some increase due to pain patient on Atenolol and HCTZ at home.. BB not resumed secondary to bradycardia at ED presentation. HCTZ not resumed due to low GFR. Monitor BP and adjust treatment accordingly. Hyperlipidemia: hold home statin therapy secondary to transaminitis Hypokalemia: K+ 3.4, will recheck and replace as needed. DVT Prophylaxis: Heparin sq Attending Statement patient was seen and examined. complaining of moderate to severe abdominal pain. will elevated LFT's.hepatitis panel pending. GI consulted. rest of assessment and plan as noted above. Breanna Lewis Apr 25, 2017 09:07 Deanne Rice MD Apr 25, 2017 11:27
[2017-04-25 11:09] LABS: HEPATITIS A AB IGM NEGATIVE (NEGATIVE); HEPATITIS B CORE AB IGM NEGATIVE (NEGATIVE); HEPATITIS B SURFACE ANTIGEN NEGATIVE (NEGATIVE)
--- NOTE | 2017-04-25 11:14 | PD.CONS ---
HPI History of Present Illness This is a 51 year old with gout who presented to ER with abd pain. Onset 2d ago , intermittent epigastric pain that then became constant last night, pain radiates to back, below shoulder blades. He has had episode of this 2 weeks ago and had cardiac w/u that was negative. He has also had some loose stool since pain started but cites frequent loose stools taking allopurinol and since cholecystectomy. Today he noticed very dark urine. NO blood in stool or vomit , unintended weight loss. never had EGD or colonoscopy. has been on Allopurinol for 6-7 months. Denies heavy drinking. (Loren Price) PFSH Past Medical History PMH: HTN, Hyperlipidemia and Gout Past Surgical History PAST SURGICAL HISTORY: Cholecystectomy (Loren Price) Coded Allergies: No Known Allergies (Unverified Adverse Reaction, Unknown, 04/24/17) Family History PAST FAMILY HISTORY: Reviewed. No h/o DM or CAD Social History PAST SOCIAL HISTORY: rare ETOH, no tobacco or drugs. (Loren Price) Review of Systems Constitutional: DENIES: Fever, Weight loss Endocrine: DENIES: Polydipsia Eyes: DENIES: Blurred vision Ears, nose, mouth, throat: DENIES: Hearing loss Respiratory: DENIES: Cough Cardiovascular: DENIES: Chest pain Gastrointestinal: COMPLAINS OF: Abdominal pain, Nausea, Vomiting, DENIES: Black stools, Bloody stools, Constipation, Diarrhea, Hematemesis Genitourinary: DENIES: Hematuria Musculoskeletal: DENIES: Joint Swelling Integumentary: DENIES: Rash Hematologic/lymphatic: DENIES: Bruising Immunologic/allergic: DENIES: Eczema Neurologic: DENIES: Abnormal gait Psychiatric: DENIES: Confusion (Loren Price) GI Exam Vitals I&O Vital Signs Date Time Temp Pulse Resp B/P (MAP) Pulse Ox O2 Delivery O2 Flow Rate FiO2 04/25/17 08:00 98.1 70 18 163/92 (115) 96 04/25/17 05:49 97.9 61 20 139/80 (99) 94 04/25/17 04:02 04/25/17 02:25 72 18 136/89 (105) Room Air 04/25/17 00:46 99 Room Air 04/25/17 00:09 49 16 167/79 (108) 97 Room Air 04/24/17 23:34 97.8 53 16 165/93 (117) 97 Room Air I/O 04/24/17 04/24/17 04/24/17 04/25/17 04/25/17 04/25/17 07:00 15:00 23:00 07:00 15:00 23:00 Intake Total 240 ml Balance 240 ml Intake Oral 240 ml Imaging Last Impressions Chest X-Ray 04/25/17 0023 Signed Impressions: Service Date/Time: Tuesday, April 25, 2017 00:30 - CONCLUSION: Cardiomegaly. No acute cardiopulmonary disease. Joaquin Giron MD Abdomen/Pelvis CT 04/25/17 0023 Signed Impressions: Service Date/Time: Tuesday, April 25, 2017 01:57 - CONCLUSION: 1. No evidence of acute abdominal or pelvic process. No masses are identified. 2. Hypodense liver compatible with fatty infiltration or hepatocellular disease. Joaquin Giron MD Gall Bladder Ultrasound 04/25/17 0000 Signed Impressions: Service Date/Time: Tuesday, April 25, 2017 07:51 - CONCLUSION: Very limited exam. Gallbladder surgically absent. Johny Serra MD FACR Laboratory Test 04/25/17 00:30 04/25/17 03:00 04/25/17 06:23 White Blood Count 9.4 TH/MM3 Red Blood Count 5.52 MIL/MM3 Hemoglobin 17.9 GM/DL Hematocrit 50.9 % Mean Corpuscular Volume 92.3 FL Mean Corpuscular Hemoglobin 32.4 PG Mean Corpuscular Hemoglobin Concent 35.1 % Red Cell Distribution Width 13.5 % Platelet Count 275 TH/MM3 Mean Platelet Volume 8.5 FL Neutrophils (%) (Auto) 66.3 % Lymphocytes (%) (Auto) 24.5 % Monocytes (%) (Auto) 7.9 % Eosinophils (%) (Auto) 0.7 % Basophils (%) (Auto) 0.6 % Neutrophils # (Auto) 6.2 TH/MM3 Lymphocytes # (Auto) 2.3 TH/MM3 Monocytes # (Auto) 0.7 TH/MM3 Eosinophils # (Auto) 0.1 TH/MM3 Basophils # (Auto) 0.1 TH/MM3 CBC Comment DIFF FINAL Differential Comment Prothrombin Time 10.5 SEC Prothromb Time International Ratio 1.0 RATIO Activated Partial Thromboplast Time 24.8 SEC Urine Color BROWN Urine Turbidity CLEAR Urine pH 7.0 Urine Specific [place] 1.036 Urine Protein 30 mg/dL Urine Glucose (UA) NEG mg/dL Urine Ketones TRACE mg/dL Urine Occult Blood TRACE Urine Nitrite NEG Urine Bilirubin MOD Urine Urobilinogen 4.0 MG/DL Urine Leukocyte Esterase NEG Urine RBC 8 /hpf Urine WBC 3 /hpf Urine Squamous Epithelial Cells <1 /hpf Urine Mucus FEW /lpf Microscopic Urinalysis Comment CULT NOT INDICATED Blood Urea Nitrogen 13 MG/DL Creatinine 1.22 MG/DL Random Glucose 151 MG/DL Total Protein 8.6 GM/DL Albumin 4.4 GM/DL Calcium Level 9.3 MG/DL Alkaline Phosphatase 199 U/L Aspartate Amino Transf (AST/SGOT) 337 U/L Alanine Aminotransferase (ALT/SGPT) 581 U/L Total Bilirubin 4.8 MG/DL Sodium Level 138 MEQ/L Potassium Level 3.4 MEQ/L Chloride Level 100 MEQ/L Carbon Dioxide Level 29.3 MEQ/L Anion Gap 9 MEQ/L Estimat Glomerular Filtration Rate 63 ML/MIN Lactic Acid Level 2.1 mmol/L 1.9 mmol/L Lipase 134 U/L Urine Opiates Screen NEG Urine Barbiturates Screen NEG Urine Amphetamines Screen NEG Urine Benzodiazepines Screen NEG Urine Cocaine Screen NEG Urine Cannabinoids Screen NEG Magnesium Level 2.0 MG/DL Triglycerides Level 211 MG/DL Cholesterol Level 107 MG/DL LDL Cholesterol 33 MG/DL HDL Cholesterol 31.4 MG/DL Cholesterol/HDL Ratio 3.40 RATIO Thyroid Stimulating Hormone 3rd Gen 4.400 uIU/ML Acetaminophen Level LESS THAN 2.0 MCG/ML Physical Examination HEENT: PERRL; normocephalic; atraumatic; no jaundice. CHEST: CTA CARDIAC: RRR ABDOMEN: Soft, nondistended,mild epigastric TTP; no hepatosplenomegaly; bowel sounds are present in all four quadrants. EXTREMITIES: No clubbing, cyanosis, or edema. SKIN: Normal; no rash; no jaundice. TROUBLE LINEMAN: No focal deficits; alert and oriented times three. (Loren Price) Assessment and Plan Plan ASSESSMENT - epigatric pain, elevated LFTs - epigastric pain radiating to back, elevated LFTs obstructive pattern. had similar episode pain, seen 04/05/17 and had cardiac w/u that was neg. at that time his AST and ALT were only mildly elevated. CT neg for acute findings. never had EGD or colonoscopy hep panel pending. will get liver w/u r/o other cause liver injury PLAN - MRCP - if MRCP neg, will do EGD - monitor labs - NPO for MRCP - further recs to follow Pt seen by myself and Dr Jama and this note is written on her behalf (Loren Price) Physician Comments seen, examined agree with above history of cholecystectomy 8 years ago , had gallstones , as per patient no ERCP done at that time, stated had sepsis postop await MRCP (Ava Jama MD) Loren Price Apr 25, 2017 11:14 Ava Jama MD Apr 25, 2017 11:51
[2017-04-25 12:42] LABS: HEPATITIS C AB IgG NEGATIVE (NEGATIVE)
[2017-04-25 13:09] LABS: DIRECT BILIRUBIN ADULT 2.9 MG/DL (0.0-0.2); TOTAL BILIRUBIN ADULT 4.9 MG/DL (0.2-1.0)
--- NOTE | 2017-04-25 16:53 | RADRPT ---
EXAM DATE/TIME: 04/25/2017 15:19 [facility] COMPARISON: CT ABDOMEN & PELVIS W CONTRAST, April 25, 2017, 1:57. US ABDOMEN - GALLBLADDER, April 25, 2017, 7:51. INDICATIONS : Abdominal pain. MEDICAL HISTORY : Hypertension. SURGICAL HISTORY : Cholecystectomy. ENCOUNTER: Initial ACUITY: 2 day PAIN SCORE: 4/10 LOCATION: Abdomen TECHNIQUE: Multiplanar, multisequence magnetic resonance imaging of the abdomen was performed. High-resolution 3D dataset was utilized to reconstruct maximum-intensity projection (MIP) images. FINDINGS: INTRAHEPATIC BILE DUCTS: Within normal limits. No significant anatomical variant is present. EXTRAHEPATIC BILE DUCTS: The common bile duct measures 4 mm. No stone or filling defect is identified. GALLBLADDER: The gallbladder has been removed. The reactive inflammatory changes seen in the gallbladder fossa. Re active changes extend along the duodenal C-loop. There are no discrete fluid collections. LIVER: Abnormal signal intensity with significant steatosis. There is no evidence of intrahepatic biliary du ct dilatation. PANCREAS: The main pancreatic duct is normal in size. There is no significant anatomical variant. Signal inte nsity is within normal limits. No mass is visualized on this non-contrast exam. OTHER: The remaining visualized structures demonstrate no acute abnormality on this non-contrast exam. CONCLUSION: 1. Inflammation and fluid stranding is identified in the sofiya hepatis extending into the gallbladder fossa and along the duodenal C-loop. There is no evidence of discrete abscess. 2. No evidence of intra-or extra hepatic biliary duct dilatation. 3. Advanced hepatic steatosis. Zach Singleton MD on April 25, 2017 at 16:43 Board Certified Radiologist. This report was verified electronically.
--- NOTE | 2017-04-25 18:55 | EKG ---
Date Performed: 04/24/2017 Time Performed: 23:53:10 PTAGE: 51 years EKG: SINUS BRADYCARDIA Compared to previous tracing, the patient is now bradycardic BORDERLINE E CG PREVIOUS TRACING : 04/05/2017 19.08 DOCTOR: Archana Barnes Interpretating Date/Time 04/25/2017 18:54:37
[2017-04-25] MEDS ORDERED: METOPROLOL TARTRATE 25 MG TAB PO PRN (21:30)
[2017-04-25] MEDS ORDERED: POVIDONE IODINE 5% (ANTISEPSIS KIT) 4 APPLICATIONS EACH NARE PRN (21:30)
[2017-04-25] MEDS ORDERED: CHLORHEXIDINE GLUCONATE 2 % 1 PACK (2 CLOTHS) TOPICAL PRN (21:30)
[2017-04-25] MEDS ORDERED: LACTATED RINGER'S 1000 ML IV PRN (21:30)
[2017-04-25] MEDS ORDERED: SODIUM CHLORID 0.9% 500 ML IV PRN (21:30)
[2017-04-26 04:12] VITALS: BP 138/76; PULSE 78; RESP 18; TEMP 99.1; O2SAT 94
[2017-04-26 07:31] VITALS: BP 133/75; PULSE 62; RESP 19; TEMP 98.6; O2SAT 96
[2017-04-26 07:56] LABS: AUTOMATED NEUTROPHIL # 4.9 TH/MM3 (1.8-7.7); BASOPHIL % 0.4 % (0.0-2.0); EOSINOPHIL # 0.1 TH/MM3 (0-0.4); EOSINOPHIL % 0.7 % (0.0-4.0); HEMATOCRIT 41.2 % (39.0-51.0); HEMOGLOBIN 14.6 GM/DL (13.0-17.0); LYMPH % 32.5 % (9.0-44.0); LYMPHOCYTE # 2.6 TH/MM3 (1.0-4.8); MEAN CELL VOLUME 92.1 FL (80.0-100.0); MEAN CORPUSCULAR HEMOGLOBIN 32.8 PG (27.0-34.0); MEAN CORPUSCULAR HGB CONC 35.6 % (32.0-36.0); MEAN PLATELET VOLUME 8.2 FL (7.0-11.0); MONO % 6.4 % (0.0-8.0); MONOCYTE # 0.5 TH/MM3 (0-0.9); PLATELET COUNT 209 TH/MM3 (150-450); RED BLOOD COUNT 4.47 MIL/MM3 (4.50-5.90); RED CELL DISTRIBUTION WIDTH 13.3 % (11.6-17.2); WHITE BLOOD COUNT 8.1 TH/MM3 (4.0-11.0)
[2017-04-26 08:18] LABS: ALBUMIN 3.6 GM/DL (3.4-5.0); ALT (GPT) 616 U/L (12-78); AST (GOT) 248 U/L (15-37); BICARBONATE 27.7 MEQ/L (21.0-32.0); BLOOD UREA NITROGEN 9 MG/DL (7-18); CALCIUM 8.6 MG/DL (8.5-10.1); CHLORIDE 105 MEQ/L (98-107); CREATININE 0.92 MG/DL (0.60-1.30); GLOMERULAR FILTRATION RATE 87 ML/MIN (>89); GLUCOSE,RANDOM 107 MG/DL (74-106); IRON (FE) 86 MCG/DL (65-175); SODIUM (NA) 141 MEQ/L (136-145)
[2017-04-26 08:21] LABS: % SATURATION IRON PROFILE 35.1 % (20-50); ALKALINE PHOSPHATASE 210 U/L (45-117); FERRITIN 1107 NG/ML (26-388); TOTAL BILIRUBIN ADULT 2.6 MG/DL (0.2-1.0); TOTAL IRON BINDING CAPACITY 245 MCG/DL (250-450); TOTAL PROTEIN 6.9 GM/DL (6.4-8.2)
[2017-04-26] MEDS ORDERED: amLODIPine BESYLATE 5 MG TAB PO SCH (09:00)
[2017-04-26] MEDS: DOCUSATE SODIUM 50 MG/SENNA 8.6 MG TAB PO SCH (10:20)
[2017-04-26] MEDS: SODIUM CHLORIDE 0.9% FLUSH 10 ML FLUSH IV FLUSH SCH (10:20)
--- NOTE | 2017-04-26 10:52 | HHI.PR ---
Subjective Remarks in no acute distress. looks more comfortable today. abdominal pain is better. no nausea or vomiting. Objective Vitals Vital Signs Date Time Temp Pulse Resp B/P (MAP) Pulse Ox O2 Delivery O2 Flow Rate FiO2 04/26/17 07:31 98.6 62 19 133/75 (94) 96 04/26/17 04:12 99.1 78 18 138/76 (96) 94 04/26/17 00:22 14 04/25/17 20:10 99.8 67 18 140/71 (94) 95 04/25/17 16:00 98.4 69 18 107/65 (79) 94 04/25/17 12:00 98.1 83 18 112/62 (79) 96 I/O 04/25/17 04/25/17 04/25/17 04/26/17 04/26/17 04/26/17 06:59 14:59 22:59 06:59 14:59 22:59 Intake Total 1600 ml Output Total 350 ml 400 ml Balance 1250 ml -400 ml Intake Oral 600 ml IV Total 1000 ml Output Urine Total 350 ml 400 ml # Voids 1 Result Diagram: 04/26/17 0720 04/26/17 0720 Imaging Last Impressions Chest X-Ray 04/25/17 0023 Signed Impressions: Service Date/Time: Tuesday, April 25, 2017 00:30 - CONCLUSION: Cardiomegaly. No acute cardiopulmonary disease. Joaquin Giron MD Abdomen/Pelvis CT 04/25/17 0023 Signed Impressions: Service Date/Time: Tuesday, April 25, 2017 01:57 - CONCLUSION: 1. No evidence of acute abdominal or pelvic process. No masses are identified. 2. Hypodense liver compatible with fatty infiltration or hepatocellular disease. Joaquin Giron MD Gall Bladder Ultrasound 04/25/17 0000 Signed Impressions: Service Date/Time: Tuesday, April 25, 2017 07:51 - CONCLUSION: Very limited exam. Gallbladder surgically absent. Johny Serra MD FACR Cholangiopancreatography MRI 04/25/17 0000 Signed Impressions: Service Date/Time: Tuesday, April 25, 2017 15:19 - CONCLUSION: 1. Inflammation and fluid stranding is identified in the sofiya hepatis extending into the gallbladder fossa and along the duodenal C-loop. There is no evidence of discrete abscess. 2. No evidence of intra-or extra hepatic biliary duct dilatation. 3. Advanced hepatic steatosis. Zach Singleton MD Objective Remarks GENERAL: This is a well-nourished, well-developed patient, in no apparent distress. CARDIOVASCULAR: Regular rate and regular rhythm without murmurs, gallops, or rubs. RESPIRATORY: Clear to auscultation. Breath sounds equal bilaterally. No wheezes , rales, or rhonchi. GASTROINTESTINAL: Abdomen soft, non-tender, nondistended. Normal, active bowel sounds MUSCULOSKELETAL: Extremities without clubbing, cyanosis, or edema. NEURO: Alert & Oriented x4 to person, place, time, situation. Moves all ext x4 Medications and IVs Inpatient Medications Acetaminophen (Tylenol) 650 mg Q6H PRN PO FEVER Last administered on 04/25/17at 23:22; Start 04/25/17 at 03:00 Amlodipine Besylate (Norvasc) 5 mg ONCE ONCE PO ; Start 04/25/17 at 10:30; Stop 04/25/17 at 13:57; Status DC Bisacodyl (Dulcolax Supp) 10 mg DAILY PRN RECTAL SEVERE CONSITIPATION; Start at 03:00 Chlorhexidine Gluconate (Chlorhexidine 2% Cloth) 3 pack STRIPPING SHOVEL OILER PRN TOPICAL SEE LABEL COMMENTS; Start 04/25/17 at 21:30; Stop 04/28/17 at 21:29 Famotidine (Pepcid Inj) 20 mg ONCE ONCE IV PUSH Last administered on 04/25/17at 03:26; Start 04/25/17 at 03:00; Stop 04/25/17 at 03:07; Status DC Hydromorphone HCl (Dilaudid Pf Inj) 1 mg Q3H PRN IV PUSH PAIN 6-10 Last administered on 04/25/17at 09:24; Start 04/25/17 at 09:00 Lactated Ringer's 1,000 ml @ 30 mls/hr Q24H PRN IV SEE LABEL COMMENTS; Start at 21:30; Stop 04/28/17 at 21:29 Lactulose (Lactulose Liq) 30 ml DAILY PRN PO SEVERE CONSITIPATION; Start at 03:00 Magnesium Hydroxide (Milk Of Magnesia Liq) 30 ml Q12H PRN PO Mild constipation ; Start 04/25/17 at 03:00 Metoprolol Tartrate (Lopressor) 25 mg STRIPPING SHOVEL OILER PRN PO SEE LABEL COMMENTS; Start 04/25/17 at 21:30; Stop 04/28/17 at 21:29 Morphine Sulfate (Morphine Inj) 2 mg Q3H PRN IV PUSH Pain 6-10; Start 04/25/17 at 03:00; Stop 04/25/17 at 03:43; Status DC Ondansetron HCl (Zofran Inj) 4 mg Q6H PRN IVP NAUSEA OR VOMITING; Start at 03:00 Oxycodone HCl (Roxicodone) 5 mg Q4H PRN PO PAIN SCALE 3 TO 5; Start 04/25/17 at 03:00 Povidone Iodine (Betadine 5% Antisepsis Kit) 1 applic STRIPPING SHOVEL OILER PRN EACH NARE SEE LABEL COMMENTS; Start 04/25/17 at 21:30; Stop 04/28/17 at 21:29 Senna/Docusate Sodium (Gwendolyn-Colace) 1 tab BID PO ; Start 04/25/17 at 09:00 Sennosides (Senokot) 17.2 mg Q12H PRN PO Moderate constipation; Start 04/25/17 at 03:00 Sodium Chloride 500 ml @ 30 mls/hr [id number] PRN IV SEE LABEL COMMENTS; Start 04/25/17 at 21:30; Stop 04/28/17 at 21:29 Sodium Chloride (NS Flush) 2 ml BID IV FLUSH Last administered on 04/25/17at 09: 24; Start 04/25/17 at 09:00 A/P Problem List: (1) Intractable abdominal pain ICD Code: R10.9 - Unspecified abdominal pain (2) Elevated LFTs ICD Code: R79.89 - Other specified abnormal findings of blood chemistry (3) Lactic acidosis ICD Code: E87.2 - Acidosis (4) Hypokalemia ICD Code: E87.6 - Hypokalemia Assessment and Plan Intractable Abd Pain: reports acute onset of epigastric/RUQ pain- now better. MRCP as noted above. GI consult appreciated; plan for EGD today. Continue w/ analgesics/antiemetics as needed. Transaminitis: Acute. Labs previously normal on 04/05/17, now Total Bili 4.8, AST 337, ALT 581, ALP 199. PT/INR 10.5/1.0. Unclear etiology. Lipase normal. Hepatitis secondary to medications? Will hold Allopurinol. Hepatitis Panel negative. TSH WNL. GI following. Lactic Acidosis: Lactate 2.1 likely secondary to dehydration rather than Sepsis. Afebrile, no leukocytosis. IVF for hydration, repeat Lactic Acid 1.9, resolved. Hypertension: fair control suspect some increase due to pain patient on Atenolol and HCTZ at home.. BB not resumed secondary to bradycardia at ED presentation. HCTZ not resumed due to low GFR. Monitor BP and adjust treatment accordingly. Hyperlipidemia: hold home statin therapy secondary to transaminitis Hypokalemia: will replace and monitor. DVT Prophylaxis: Heparin sq Deanne Rice MD Apr 26, 2017 10:51
[2017-04-26] MEDS ORDERED: PANTOPRAZOLE SOD 40 MG DELAYED RELEASE TAB PO SCH (12:00)
[2017-04-26] MEDS ORDERED: PROPOFOL 200 MG/20 ML AMP IV ONE (12:00)
[2017-04-26 12:05] VITALS: BP 154/83; PULSE 60; RESP 18; TEMP 98.6; O2SAT 95
[2017-04-26] MEDS ORDERED: METOPROLOL TARTRATE 25 MG TAB PO PRN (12:30)
[2017-04-26] MEDS ORDERED: SODIUM CHLORID 0.9% 500 ML IV PRN (12:30)
[2017-04-26] MEDS ORDERED: LACTATED RINGER'S 1000 ML IV PRN (12:30)
[2017-04-26] MEDS ORDERED: INSULIN HUMAN REGULAR 1,000 UNITS/10 ML VIAL SQ PRN (12:30)
[2017-04-26] MEDS ORDERED: POVIDONE IODINE 5% (ANTISEPSIS KIT) 4 APPLICATIONS EACH NARE PRN (12:30)
[2017-04-26] MEDS ORDERED: CHLORHEXIDINE GLUCONATE 2 % 1 PACK (2 CLOTHS) TOPICAL PRN (12:30)
--- NOTE | 2017-04-26 13:04 | GIPROC ---
[facility] [address] [facility]. [facility], [id number] EGD PROCEDURE REPORT EXAM DATE: 04/26/2017 PATIENT NAME: Constantino Niño MR #: [id number] BIRTHDATE: 1965 ATTENDING: Ava Jama MD ORDER #: [id number] HVAC MANAGER: Sera Jenkins and Troy Phan STATUS: inpatient INDICATIONS: The patient is a 51 yr old male here for an EGD due to abdominal pain abnormal lfts PROCEDURE PERFORMED: EGD w/ biopsy MEDICATIONS: None and Per Anesthesia. TOPICAL ANESTHETIC: none CONSENT: The patient understands the risks and benefits of the procedure and understands that these risks include, but are not limited to: sedation, allergic reaction, infection, perforation and/or bleeding. Alternative means of evaluation and treatment include, among others: physical exam, x-rays, and/or surgical intervention. The patient elects to proceed with this endoscopic procedure. medical equipment was checked for proper function. Hand hygiene and appropriate measures for infection prevention was taken. After the risks, benefits and alternatives of the procedure were thoroughly explained, Informed consent was verified, confirmed and timeout was successfully executed by the treatment team. The patient was anesthetized with topical anesthesia and the Pentax [id number] endoscope was introduced through the mouth and advanced to the second portion of the duodenum. Retroflexed views revealed a hiatal hernia The gastroscope was then slowly withdrawn and removed. Esophagitis/Schatzki's ring-biopsy gastritis antrum-biopsy. ADVERSE EVENTS: There were no complications. IMPRESSIONS: 1. Esophagitis/Schatzki's ring-biopsy gastritis antrum-biopsy 2. Retroflexed views revealed a hiatal hernia RECOMMENDATIONS: 1. Await biopsy results. Biopsy results will not be ready for 7-10 days. If you don't hear from us in two weeks, call our office for biopsy results. 2. Anti-reflux regimen 3. Start PPI 4. Advance diet ok to dc home from [facility] if tolerated food no driving 24 hrs fu office 1 week with lfts avoid etoh weight loss increase exercise mediterranean diet antireflux measures fu labs if lfts still high-consider EUS PATIENT CONDITION: stable DISPOSITION: Inpatient REPEAT EXAM: Return 1 year EGD Ava Jama MD eSigned: Ava Jama MD 04/26/2017 1:04 PM cc: PATIENT NAME: Constantino Niño MR#: [id number]
[2017-04-26] MEDS ORDERED: PANT40TA3 PO (13:51)
--- NOTE | 2017-04-26 13:52 | HHI.DCPOC ---
Discharge Care Plan Diagnosis: (1) Elevated LFTs (2) Esophagitis (3) Schatzki's ring of distal esophagus (4) Gastritis Goals to Promote Your Health * To prevent worsening of your condition and complications * To maintain your health at the optimal level Directions to Meet Your Goals Take your medications as prescribed Follow your dietary instruction Follow activity as directed Keep your appointments as scheduled Take your immunizations and boosters as scheduled If your symptoms worsen call your PCP, if no PCP go to Urgent Care Center or Emergency Room Smoking is Dangerous to Your Health. Avoid second hand smoke Call the 24-hour hour crisis hotline for domestic abuse at Milena Masters PA-C Apr 26, 2017 1:52 pm
[2017-04-26] MEDS ORDERED: POTASSIUM CHLORIDE 20 MEQ CONTROLLED RELEASE TAB PO ONE (15:00)
[2017-04-27 13:58] LABS: SMOOTH MUSCLE TOTAL AUTOABS Negative (Negative)
[2017-04-27 19:04] LABS: ALPHA-1-ANTITRYPSIN 145 mg/dL (100 - 190)
[2017-04-28 15:52] LABS: CERULOPLASMIN 24 mg/dL (18-36)
[2017-04-29 03:50] LABS: MITOCHONDRIAL ABS LESS THAN 20.0 U (<=20.0)
== END 2017-04-26 18:27 | disposition home or self-care (01) | DRG 442 ==
LOC: NEPC 23:33 → NEDA 04-25 02:58 → OBSVTOIN 04-25 03:08 → NEPHCDU 04-25 03:55
PROVIDERS: ADMIT Internal Medicine; ATTEND Internal Medicine
PROC: 0DB68ZX Excision of Stomach, Via Natural or Artificial Opening Endoscopic, Diagnostic (ICD-10-PCS; 2017-04-26)
PROC: 0DB58ZX Excision of Esophagus, Via Natural or Artificial Opening Endoscopic, Diagnostic (ICD-10-PCS; principal; 2017-04-26 12:44)
DX: K75.9 Inflammatory liver disease, unspecified (principal); E87.2 Acidosis; I11.9 Hypertensive heart disease without heart failure; E86.0 Dehydration; K22.2 Esophageal obstruction; E87.6 Hypokalemia; R31.9 Hematuria, unspecified; K29.70 Gastritis, unspecified, without bleeding; K44.9 Diaphragmatic hernia without obstruction or gangrene; R74.0 Nonspecific elevation of levels of transaminase and lactic acid dehydrogenase [LDH]; K76.0 Fatty (change of) liver, not elsewhere classified; K20.9 Esophagitis, unspecified; E78.5 Hyperlipidemia, unspecified; R00.1 Bradycardia, unspecified; M10.9 Gout, unspecified; Z90.49 Acquired absence of other specified parts of digestive tract
CPT/HCPCS: 71045; 74177; 74181; 76377; 76705; 80053; 80061; 80074; 80307; 81001; 82103; 82105; 82247; 82248; 82390; 82728; 83520; 83540; 83550; 83605; 83690; 83735; 84443; 85025; 85610; 85730; 86038; 86255; 88305; 88312; 93005; 96361; 96374; 96375; J1170; J2270; J2405; J7030; J7120; Q9967